=== PATIENT | male | born 1990 ===

== ENCOUNTER 2017-07-25 11:09 | Inpatient (IN) | payer OTHER ==
[2017-07-25 11:45] VITALS: BMI 30.9
[2017-07-25] MEDS: Nafcillin 2 GM in Sodium Chloride 0.9% 100 ML IVPB SCH ×3 (12:00→22:28)
--- NOTE | 2017-07-25 12:03 | ED PDOC ---
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 VASQUEZ COMPLICATED BY INFECTION HERE FOR ADMISSION. PATIENT HAS HAD CX 07/17 DEMONSTRATING STAPH. DENIES TAKING ANY ANTIBIOTICS. SENT IN BY DR. VASQUEZ FOR ADMISSION. PATIENT DENIES ANY FEVERS/ CHILLS.) Past Medical History Reviewed: Historical Data, Nursing Documentation, Vital Signs Vital Signs: Last Vital Signs Temp 98 F 07/25/17 11:45 Pulse 80 07/25/17 11:45 Resp 20 07/25/17 11:45 BP 126/84 07/25/17 11:45 Pulse Ox 97 07/25/17 12:04 - Medical History PMH: Fractures - Family History Family History: States: Unknown Family Hx - Immunization History Hx Tetanus Toxoid Vaccination: No Hx Influenza Vaccination: No Hx Pneumococcal Vaccination: No - Home Medications Home Medications: Ambulatory Orders Medication Instructions Recorded oxyCODONE/Acetaminophen [Percocet 1 tab PO DAILY PRN 07/25/17 5/325 mg Tab] - Allergies Allergies/Adverse Reactions: Allergies Allergy/AdvReac Type Severity Reaction Status Date / Time No Known Allergies Allergy Verified 07/25/17 12:02 Review of Systems ROS Statement: Except As Marked, All Systems Reviewed And Found Negative Musculoskeletal: Positive for: Other (ELBOW PAIN) Physical Exam - Reviewed Nursing Documentation Reviewed: Yes Vital Signs Reviewed: Yes - Physical Exam Appears: Positive for: Well, Non-toxic, No Acute Distress Head Exam: Positive for: ATRAUMATIC, NORMAL INSPECTION, NORMOCEPHALIC Skin: Positive for: Normal Color, Warm, DRY Eye Exam: Positive for: EOMI, Normal appearance, PERRL ENT: Positive for: Normal ENT Inspection Neck: Positive for: Normal, Painless ROM Cardiovascular/Chest: Positive for: Regular Rate, Rhythm Respiratory: Positive for: CNT, Normal Breath Sounds Gastrointestinal/Abdominal: Positive for: Normal Exam, Bowel Sounds, Soft Back: Positive for: Normal Inspection Extremity: Positive for: Normal ROM, Other (RIGHT ELBOW IN CAST. LEFT ELBOW WOUND WITHOUT ERYTHEMA OR SIGNS OF INFECTION.) Neurologic/Psych: Positive for: Alert, Oriented - Laboratory Results Result Diagrams: 07/25/17 12:17 07/25/17 12:17 - ECG O2 Sat by Pulse Oximetry: 97 - Progress ED Course And Treament: D/W DR. VASQUEZ REQUESTS ID CONSULT D/W DR. MARTINES. NAFCILLIN 2 GM IV Q 6 PREFERRED BY HIM. D/W SAADIA BOLAND. PATIENT TO BE ADMITTED TO [facility] Disposition - Clinical Impression Clinical Impression: Wound infection - Patient ED Disposition Is Patient to be Admitted: Yes - Disposition Disposition Time: 14:03 Condition: FAIR Forms: [employer] (Kiswahili) - Pt Status Changed To: Hospital Disposition Of: Inpatient - Admit Certification Admit to Inpatient:: After my assessment, the patient will require hospitalization for at least two midnights. This is because of the severity of symptoms shown, intensity of services needed, and/or the medical risk in this patient being treated as an outpatient.
[2017-07-25 12:17] LABS: VENOUS BLOOD GAS PCO2 44 mmHg (40-60); VENOUS BLOOD PH 7.44 (7.32-7.43)
[2017-07-25 12:35] LABS: BASO # 0.1 K/uL (0.0-0.2); BASO % 0.7 % (0.0-2.0); EOS # 0.6 K/uL (0.0-0.7); EOS % 7.1 % (0.0-4.0); HEMATOCRIT 38.9 % (35.0-51.0); LYMPH # 2.6 K/uL (1.0-4.3); LYMPH % 32.8 % (20.0-40.0); MEAN CELL VOLUME 84.4 fl (80.0-94.0); MEAN CORPUSCULAR HEMOGLOBIN 27.8 pg (27.0-31.0); MEAN CORPUSCULAR HGB CONC 32.9 g/dL (33.0-37.0); MEAN PLATELET VOLUME 8.6 fl (7.2-11.7); MONO # 0.5 K/uL (0.0-0.8); MONO % 6.5 % (0.0-10.0); NEUT # 4.2 K/uL (1.8-7.0); NEUT % 52.9 % (50.0-75.0); NRBC % 0.2 % (0.0-0.0); RED CELL DISTRIBUTION WIDTH 12.5 % (11.5-14.5); WHITE BLOOD COUNT 7.9 K/uL (4.8-10.8)
[2017-07-25 12:40] LABS: ALKALINE PHOSPHATASE 125 U/L (38-126); ALT/SGPT 76 U/L (21-72); AST/SGOT 30 U/L (17-59); BILIRUBIN,TOTAL 0.7 mg/dl (0.2-1.3); BLOOD UREA NITROGEN 15 mg/dl (9-20); CARBON DIOXIDE 27 mmol/L (22-30); CHLORIDE 101 mmol/L (98-107); GFR AFRICAN-AMERICAN > 60; GLUCOSE,RANDOM 122 mg/dL (75-110); POTASSIUM 3.7 MMOL/L (3.6-5.0); SODIUM 141 mmol/l (132-148); TOTAL PROTEIN 8.7 G/DL (6.3-8.2)
--- NOTE | 2017-07-25 13:23 | CP.PCM.CON ---
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 VASQUEZ COMPLICATED BY INFECTION HERE FOR ADMISSION. PATIENT HAS HAD CX 07/17 DEMONSTRATING STAPH. DENIES TAKING ANY ANTIBIOTICS. SENT IN BY DR. VASQUEZ FOR ADMISSION. 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 OPERATED AT [facility] AFTER FALL RECENT OR / CULTURE AT [place] 07/17 - CULTURES AT THAT TIME ++ MSSA NOW HERE FOR POSSIBLE DRAINAGE/ WASHOUT RIGHT ELBOW STARTED ON IV ANTIBIOTICS DENIES SYSTEMIC SYMPTOMS - FEVER NEG PMH- NEG SH- NO DRUGS FH- N/C NKA Review of Systems - Review of Systems All systems: reviewed and no additional remarkable complaints except - Constitutional Constitutional: As Per HPI - EENT Eyes: absent: As Per HPI, Blind Spots, Blurred Vision, Change in Vision, Decreased Night Vision, Diplopia, Discharge, Dry Eye, Exophthalmos, Floaters, Irritation, Itchy Eyes, Loss of Peripheral Vision, Pain, Photophobia, Requires Corrective Lenses, Sees Flashes, Spots in Vision, Tunnel Vision, Other Visual Disturbances, Loss of Vision, Other Ears: absent: As Per HPI, Decreased Hearing, Ear Discharge, Ear Pain, Tinnitus, Abnormal Hearing, Disequilibrium, Dizziness, Other Nose/Mouth/Throat: absent: As Per HPI, Epistaxis, Nasal Congestion, Nasal Discharge, Nasal Obstruction, Nasal Trauma, Nose Pain, Post Nasal Drip, Sinus Pain, Sinus Pressure, Bleeding Gums, Change in Voice, Dental Pain, Dry Mouth, Dysphagia, Halitosis, Hoarsness, Lip Swelling, Mouth Lesions, Mouth Pain, Odynophagia, Sore Throat, Throat Swelling, Tongue Swelling, Facial Pain, Neck Pain, Neck Mass, Other - Cardiovascular Cardiovascular: absent: As Per HPI, Acrocyanosis, Chest Pain, Chest Pain at Rest , Chest Pain with Activity, Claudication, Diaphoresis, Dyspnea, Dyspnea on Exertion, Edema, Irregular Heart Rhythm, Pain Radiating to Arm/Neck/Jaw, Leg Edema, Leg Ulcers, Lightheadedness, Orthopnea, Palpitations, Paroxysmal Nocturnal Dyspnea, Pedal Edema, Radiating Pain, Rapid Heart Rate, Slow Heart Rate, Syncope, Other - Respiratory Respiratory: absent: As Per HPI, Cough, Dyspnea, Hemoptysis, Dyspnea on Exertion , Wheezing, Snoring, Stridor, Pain on Inspiration, Chest Congestion, Excessive Mucous Production, Change in Mucous Color, Pain with Coughing, Other - Gastrointestinal Gastrointestinal: absent: As Per HPI, Abdominal Pain, Belching, Bloating, Change in Bowel Habits, Change in Stool Character, Coffee Ground Emesis, Constipation, Cramping, Diarrhea, Dyspepsia, Dysphagia, Early Satiety, Excessive Flatus, Fecal Incontinence, Heartburn, Hematemesis, Hematochezia, Loose Stools, Melena, Nausea, Odynophagia, Temesmus, Vomiting, Other - Genitourinary Genitourinary: absent: As Per HPI, Change in Urinary Stream, Difficulty Urinating, Dysuria, Flank Pain, Hematuria, Pyuria, Nocturia, Urinary Incontinence, Urinary Frequency, Urinary Hesitance, Urinary Urgency, Voiding Freq/Small Amts, Freq UTI, Hx Renal/Bladder Calculi, Hx /Renal Surgery, Bladder Distension, Other - Musculoskeletal Musculoskeletal: As Per HPI - Integumentary Integumentary: As Per HPI - Neurological Neurological: absent: As Per HPI, Abnormal Gait, Abnormal Hearing, Abnormal Movements, Abnormal Speech, Behavioral Changes, Burning Sensations, Confusion, Convulsions, Disequilibrium, Dizziness, Numbness, Focal Weakness, Frequent Falls , Headaches, Lack of Coordination, Loss of Vision, Memory Loss, Paresthesias, Radicular Pain, Restless Legs, Sensory Deficit, Syncope, Tingling, Tremor, Vertigo, Weakness, Other Visual Disturbances, Other - Psychiatric Psychiatric: absent: As Per HPI, Abnormal Sleep Pattern, Anhedonia, Anxiety, Auditory Hallucinations, Behavioral Changes, Change in Appetite, Change in Libido, Confusion, Depression, Difficulty Concentrating, Hallucinations, Homicidal Ideation, Hopelessness, Irritability, Memory Loss, Mood Swings, Panic Attacks, Paranoia, Suicidal Ideation, Visual Hallucinations, Tactile Hallucinations, Other - Endocrine Endocrine: absent: As Per HPI, Change in Body Appearance, Change in Libido, Cold Intolorance, Deepening of Voice, Excessive Sweating, Fatigue, Flushing, Heat Intolorance, Increase in Ring/Shoe/Hat Size, Palpitations, Polydipsia, Polyphagia, Polyuria, Other - Hematologic/Lymphatic Hematologic: absent: As Per HPI, Easy Bleeding, Easy Bruising, Lymphadenopathy, Other Past Patient History - Infectious Disease Hx of Infectious Diseases: None - Past Social History Smoking Status: Never Smoked - MUSCULOSKELETAL/RHEUMATOLOGICAL Hx Fractures: Yes (bilateral elbow) - PSYCHIATRIC Hx Substance Use: No - SURGICAL HISTORY Hx Surgeries: Yes Hx Orthopedic Surgery: Yes (06/17/17 bone repair both elbows) - ANESTHESIA Hx Anesthesia: Yes Hx Anesthesia Reactions: No Hx Malignant Hyperthermia: No Meds Allergies/Adverse Reactions: Allergies Allergy/AdvReac Type Severity Reaction Status Date / Time No Known Allergies Allergy Verified 07/25/17 12:02 - Medications Medications: Current Medications Nafcillin Sodium 2 gm/ Sodium (Chloride) 100 mls @ 100 mls/hr IVPB Q6 BRIAN PRN Reason: Protocol Physical Exam - Constitutional Appears: Non-toxic, Chronically Ill - Head Exam Head Exam: NORMOCEPHALIC - Eye Exam Eye Exam: PERRL. absent: Scleral icterus - ENT Exam ENT Exam: Mucous Membranes Dry, Normal External Ear Exam - Neck Exam Neck exam: Negative for: Lymphadenopathy - Respiratory Exam Respiratory Exam: Decreased Breath Sounds, Clear to Auscultation Bilateral - Cardiovascular Exam Cardiovascular Exam: REGULAR RHYTHM, +S1, +S2 - GI/Abdominal Exam GI & Abdominal Exam: Diminished Bowel Sounds, Soft. absent: Tenderness - Rectal Exam Rectal Exam: Deferred - Exam Exam: NORMAL INSPECTION - Extremities Exam Extremities exam: Positive for: joint swelling, normal capillary refill, pedal pulses present. Negative for: calf tenderness, full ROM, normal inspection, pedal edema, tenderness Additional comments: RIGHT ELBOW IN A CAST- ERYTHEMA + LEFT ELBOW SUTURE LINE IN TACT NO PUS - Back Exam Back exam: absent: CVA tenderness (L), CVA tenderness (R) - Neurological Exam Neurological exam: Alert, CN II-XII Intact, Oriented x3, Reflexes Normal - Psychiatric Exam Psychiatric exam: Normal Affect - Skin Skin Exam: Dry Additional comments: NOTED Results - Vital Signs Recent Vital Signs: Last Vital Signs Temp 98 F 07/25/17 11:45 Pulse 80 07/25/17 11:45 Resp 20 07/25/17 11:45 BP 126/84 07/25/17 11:45 Pulse Ox 97 07/25/17 12:04 - Labs Result Diagrams: 07/25/17 12:17 07/25/17 12:17 Labs: Laboratory Results - last 24 hr 12/13/17 12/13/17 12/13/17 12:10 12:17 12:17 WBC 7.9 RBC 4.61 Hgb 12.8 Hct 38.9 MCV 84.4 MCH 27.8 MCHC 32.9 L RDW 12.5 Plt Count 321 MPV 8.6 Neut % (Auto) 52.9 Lymph % (Auto) 32.8 [place] % (Auto) 6.5 Eos % (Auto) 7.1 H Baso % (Auto) 0.7 Neut # 4.2 Lymph # 2.6 [place] # 0.5 Eos # 0.6 Baso # 0.1 pO2 64 H VBG pH 7.44 H VBG pCO2 44 VBG HCO3 28.7 VBG Total CO2 31.3 H VBG O2 Sat (Calc) 96.0 H VBG Base Excess 5.0 H VBG Potassium 3.7 A-a O2 Difference 31.0 Sodium 136.0 141 Chloride 103.0 101 Glucose 135 H Lactate 1.0 FiO2 21.0 Potassium 3.7 Carbon Dioxide 27 Anion Gap 17 BUN 15 Creatinine 0.6 L Est GFR ( Amer) > 60 Est GFR (Non-Af Amer) > 60 Random Glucose 122 H Calcium 9.0 Total Bilirubin 0.7 AST 30 ALT 76 H Alkaline Phosphatase 125 Total Protein 8.7 H Albumin 4.3 Globulin 4.4 H Albumin/Globulin Ratio 1.0 Venous Blood Potassium 3.7 Assessment & Plan (1) Cellulitis Status: Acute (2) Septic joint Status: Acute - Assessment and Plan (Free Text) Assessment: FOR POSSIBLE OR/ WASHOUT RIGHT ELBOW ORIGINALLY OPERATED AT [facility] IV NAFCILLIN WILL NEED OR CULTURES MAY NEED STEEL ROLLER IV ANTIBIOTICS
[2017-07-25] MEDS ORDERED: Oxycodone/Acetaminophen 5/325 mg Tab PO PRN (14:21)
[2017-07-25] MEDS ORDERED: Morphine 4 MG/ML VIAL IVP ONE (14:32)
[2017-07-25] MEDS ORDERED: Morphine 4 MG/ML VIAL ONE (14:33)
[2017-07-25] MEDS ORDERED: Lidocaine 1% Inj (20ml) ONE (14:42)
--- NOTE | 2017-07-25 15:15 | PCM.SURG1 ---
Surgeon's Initial Post Op Note - Surgeon's Notes Surgeon: Davian Helm MD Health Social Work Professor: NONE Type of Anesthesia: Local Pre-Operative Diagnosis: Broken arms, infection Operative Findings: US showed patent left basilic vein. Post-Operative Diagnosis: Broken arms, infection Operation Performed: Single lumen picc, 37 cm VIA the left basilic vein. Tip is in the SVC. Specimen/Specimens Removed: none Estimated Blood Loss: EBL {In ML}: 2 Blood Products Given: N/A Drains Used: No Drains Post-Op Condition: Fair Date of Surgery/Procedure: 07/25/17 Time of Surgery/Procedure: 15:10
[2017-07-25] MEDS ORDERED: Pneumococcal 23-Valent Vaccine IM ONE (16:58)
[2017-07-25] MEDS ORDERED: Influenza Vaccine 18yr & older 0.5 ML/45 MCG SYR IM ONE (17:03)
[2017-07-25] MEDS: Oxycodone/Acetaminophen 5/325 mg Tab PO PRN ×2 (17:51→22:34)
[2017-07-26] MEDS: Oxycodone/Acetaminophen 5/325 mg Tab PO PRN ×4 (03:51→20:14)
[2017-07-26] MEDS: Nafcillin 2 GM in Sodium Chloride 0.9% 100 ML IVPB SCH ×4 (03:52→21:14)
[2017-07-26 06:24] LABS: BASO # 0.1 K/uL (0.0-0.2); BASO % 0.6 % (0.0-2.0); EOS # 0.6 K/uL (0.0-0.7); EOS % 6.5 % (0.0-4.0); HEMATOCRIT 36.3 % (35.0-51.0); LYMPH % 31.1 % (20.0-40.0); MEAN CELL VOLUME 85.2 fl (80.0-94.0); MEAN CORPUSCULAR HEMOGLOBIN 28.3 pg (27.0-31.0); MEAN CORPUSCULAR HGB CONC 33.3 g/dL (33.0-37.0); MEAN PLATELET VOLUME 8.3 fl (7.2-11.7); MONO # 0.8 K/uL (0.0-0.8); NEUT # 5.2 K/uL (1.8-7.0); NEUT % 53.8 % (50.0-75.0); RED CELL DISTRIBUTION WIDTH 12.8 % (11.5-14.5); WHITE BLOOD COUNT 9.7 K/uL (4.8-10.8)
[2017-07-26 06:43] LABS: ALKALINE PHOSPHATASE 116 U/L (38-126); ALT/SGPT 65 U/L (21-72); AST/SGOT 35 U/L (17-59); BILIRUBIN,TOTAL 0.9 mg/dl (0.2-1.3); BLOOD UREA NITROGEN 13 mg/dl (9-20); CARBON DIOXIDE 33 mmol/L (22-30); CHLORIDE 102 mmol/L (98-107); GFR AFRICAN-AMERICAN > 60; GLUCOSE,RANDOM 89 mg/dL (75-110); POTASSIUM 4.3 MMOL/L (3.6-5.0); SODIUM 141 mmol/l (132-148); TOTAL PROTEIN 7.9 G/DL (6.3-8.2)
--- NOTE | 2017-07-26 06:58 | CP.PCM.HP ---
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 surgery and revisions at [facility] bw noted. picc placed, ID consult appriciated. ortho pending. left elbow yonatan intact c/d. no f/c. bw noted. r elbow w/ splint. pt also c/o mild rash to abd, pruritic and erythematous pt c/o nausea controlled w/ zofran Present on Admission - Present on Admission Any Indicators Present on Admission: No Review of Systems - Integumentary Integumentary: As Per HPI Past Patient History - Infectious Disease Hx of Infectious Diseases: None - Past Medical History & Family History Past Medical History?: Yes - Past Social History Smoking Status: Former Smoker - MUSCULOSKELETAL/RHEUMATOLOGICAL Hx Falls: No - PSYCHIATRIC Hx Substance Use: No - SURGICAL HISTORY Hx Surgeries: Yes Hx Orthopedic Surgery: Yes (06/17/17 bone repair both elbows) - ANESTHESIA Hx Anesthesia: Yes Hx Anesthesia Reactions: No Hx Malignant Hyperthermia: No Meds Allergies/Adverse Reactions: Allergies Allergy/AdvReac Type Severity Reaction Status Date / Time No Known Allergies Allergy Verified 07/25/17 12:02 Physical Exam - Constitutional Appears: Well, Non-toxic, No Acute Distress - Head Exam Head Exam: ATRAUMATIC, NORMAL INSPECTION, NORMOCEPHALIC - Eye Exam Eye Exam: EOMI, Normal appearance, PERRL Pupil Exam: NORMAL ACCOMODATION, PERRL - ENT Exam ENT Exam: Mucous Membranes Moist, Normal Exam - Neck Exam Neck exam: Positive for: Normal Inspection - Respiratory Exam Respiratory Exam: Clear to Auscultation Bilateral, NORMAL BREATHING PATTERN - Cardiovascular Exam Cardiovascular Exam: REGULAR RHYTHM, RRR, +S1, +S2 - GI/Abdominal Exam GI & Abdominal Exam: Normal Bowel Sounds, Soft. absent: Tenderness - Extremities Exam Extremities exam: Positive for: full ROM, normal capillary refill, normal inspection, pedal pulses present Additional comments: left elbow staple line c/d/i r splint intact - Back Exam Back exam: NORMAL INSPECTION - Neurological Exam Neurological exam: Alert, CN II-XII Intact, Normal Gait, Oriented x3, Reflexes Normal - Psychiatric Exam Psychiatric exam: Normal Affect, Normal Mood - Skin Skin Exam: Dry, Intact, Normal Color, Warm Results - Vital Signs Recent Vital Signs: Last Vital Signs Temp 98.3 F 07/26/17 00:39 Pulse 76 07/26/17 00:39 Resp 18 07/26/17 00:39 BP 122/80 07/26/17 00:39 Pulse Ox 98 07/26/17 00:39 - Labs Result Diagrams: 07/26/17 05:45 07/26/17 05:45 Labs: Laboratory Results - last 24 hr 07/25/17 07/25/17 07/25/17 12:10 12:17 12:17 WBC 7.9 RBC 4.61 Hgb 12.8 Hct 38.9 MCV 84.4 MCH 27.8 MCHC 32.9 L RDW 12.5 Plt Count 321 MPV 8.6 Neut % (Auto) 52.9 Lymph % (Auto) 32.8 [place] % (Auto) 6.5 Eos % (Auto) 7.1 H Baso % (Auto) 0.7 Neut # 4.2 Lymph # 2.6 [place] # 0.5 Eos # 0.6 Baso # 0.1 pO2 64 H VBG pH 7.44 H VBG pCO2 44 VBG HCO3 28.7 VBG Total CO2 31.3 H VBG O2 Sat (Calc) 96.0 H VBG Base Excess 5.0 H VBG Potassium 3.7 A-a O2 Difference 31.0 Sodium 136.0 141 Chloride 103.0 101 Glucose 135 H Lactate 1.0 FiO2 21.0 Potassium 3.7 Carbon Dioxide 27 Anion Gap 17 BUN 15 Creatinine 0.6 L Est GFR ( Amer) > 60 Est GFR (Non-Af Amer) > 60 Random Glucose 122 H Calcium 9.0 Total Bilirubin 0.7 AST 30 ALT 76 H Alkaline Phosphatase 125 Total Protein 8.7 H Albumin 4.3 Globulin 4.4 H Albumin/Globulin Ratio 1.0 Venous Blood Potassium 3.7 07/26/17 07/26/17 05:45 05:45 WBC 9.7 RBC 4.26 L Hgb 12.1 Hct 36.3 MCV 85.2 MCH 28.3 MCHC 33.3 RDW 12.8 Plt Count 297 MPV 8.3 Neut % (Auto) 53.8 Lymph % (Auto) 31.1 [place] % (Auto) 8.0 Eos % (Auto) 6.5 H Baso % (Auto) 0.6 Neut # 5.2 Lymph # 3.0 [place] # 0.8 Eos # 0.6 Baso # 0.1 pO2 VBG pH VBG pCO2 VBG HCO3 VBG Total CO2 VBG O2 Sat (Calc) VBG Base Excess VBG Potassium A-a O2 Difference Sodium 141 Chloride 102 Glucose Lactate FiO2 Potassium 4.3 Carbon Dioxide 33 H Anion Gap 10 BUN 13 Creatinine 0.8 Est GFR ( Amer) > 60 Est GFR (Non-Af Amer) > 60 Random Glucose 89 Calcium 9.0 Total Bilirubin 0.9 AST 35 ALT 65 Alkaline Phosphatase 116 Total Protein 7.9 Albumin 3.9 Globulin 4.0 H Albumin/Globulin Ratio 1.0 Venous Blood Potassium Assessment & Plan (1) Osteomyelitis of right elbow Assessment and Plan: nafcillin in hospital, likely dc on cubicin ID ortho Status: Acute (2) DVT prophylaxis Assessment and Plan: scd and ae hose ambulation Status: Acute (3) Nausea Assessment and Plan: zofran Status: Acute (4) Rash Assessment and Plan: hydrocortisone benadryl prn likely contact derm Status: Acute (5) Wound infection Assessment and Plan: ortho anbx, ID Status: Acute Decision To Admit - Pt Status Changed To: Hospital Disposition Of: Inpatient - Admit Certification Admit to Inpatient:: After my assessment, the patient will require hospitalization for at least two midnights. This is because of the severity of symptoms shown, intensity of services needed, and/or the medical risk in this patient being treated as an outpatient. - . Bed Request Type: Med/Surg Admitting Physician: Vera Ashley
[2017-07-27] MEDS: Oxycodone/Acetaminophen 5/325 mg Tab PO PRN ×3 (01:28→14:20)
[2017-07-27] MEDS: Nafcillin 2 GM in Sodium Chloride 0.9% 100 ML IVPB SCH ×4 (04:20→21:39)
[2017-07-27 06:13] LABS: BASO # 0.1 K/uL (0.0-0.2); BASO % 0.8 % (0.0-2.0); EOS # 0.5 K/uL (0.0-0.7); EOS % 6.9 % (0.0-4.0); HEMATOCRIT 36.5 % (35.0-51.0); LYMPH % 38.7 % (20.0-40.0); MEAN CELL VOLUME 84.8 fl (80.0-94.0); MEAN CORPUSCULAR HEMOGLOBIN 27.9 pg (27.0-31.0); MEAN CORPUSCULAR HGB CONC 32.9 g/dL (33.0-37.0); MEAN PLATELET VOLUME 8.1 fl (7.2-11.7); MONO # 0.7 K/uL (0.0-0.8); MONO % 8.5 % (0.0-10.0); NEUT # 3.5 K/uL (1.8-7.0); NEUT % 45.1 % (50.0-75.0); NRBC % 0.1 % (0.0-0.0); RED CELL DISTRIBUTION WIDTH 12.5 % (11.5-14.5); WHITE BLOOD COUNT 7.7 K/uL (4.8-10.8)
[2017-07-27 06:46] LABS: ALKALINE PHOSPHATASE 121 U/L (38-126); ALT/SGPT 79 U/L (21-72); AST/SGOT 52 U/L (17-59); BLOOD UREA NITROGEN 10 mg/dl (9-20); CARBON DIOXIDE 30 mmol/L (22-30); CHLORIDE 101 mmol/L (98-107); GFR AFRICAN-AMERICAN > 60; GLUCOSE,RANDOM 90 mg/dL (75-110); POTASSIUM 4.2 MMOL/L (3.6-5.0); SODIUM 143 mmol/l (132-148); TOTAL PROTEIN 8.1 G/DL (6.3-8.2)
--- NOTE | 2017-07-27 12:28 | CP.PCM.PN ---
Subjective - Date & Time of Evaluation Date of Evaluation: 07/27/17 Time of Evaluation: 08:00 - Subjective Subjective: iv rx in progess tolerating well will need 6 weeks rx + OM right elbow MSSA + as per Ortho- hardware placed at [place] removed at [facility] - Vital Signs/Intake and Output Vital Signs (last 24 hours): Temp Pulse Resp BP Pulse Ox 97.9 F 69 18 127/82 97 07/27/17 07:27 07/27/17 07:27 07/27/17 07:27 07/27/17 07:27 07/27/17 07:27 - Medications Medications: Current Medications Diphenhydramine HCl (Benadryl) 25 mg PO Q6 PRN PRN Reason: Allergy symptoms Hydrocortisone (Hydrocortisone Lotion 2.5%) 1 applic TP BID BRIAN Last Admin: 07/27/17 09:36 Dose: 1 applic Nafcillin Sodium 2 gm/ Sodium (Chloride) 100 mls @ 100 mls/hr IVPB Q6 BRIAN PRN Reason: Protocol Last Admin: 07/27/17 09:09 Dose: 100 mls/hr Ondansetron HCl (Zofran Inj) 4 mg IVP Q6 PRN PRN Reason: Nausea/Vomiting Last Admin: 07/26/17 18:21 Dose: 4 mg Oxycodone/Acetaminophen (Percocet 5/325 Mg Tab) 1 tab PO Q4 PRN PRN Reason: Pain, moderate (4-7) Stop: 07/28/17 14:22 Oxycodone/Acetaminophen (Percocet 5/325 Mg Tab) 2 tab PO Q4 PRN PRN Reason: Pain, severe (8-10) Stop: 07/28/17 14:22 Last Admin: 07/27/17 08:30 Dose: 2 tab - Labs Labs: 07/27/17 06:00 07/27/17 06:00 - Constitutional Appears: Non-toxic, Chronically Ill - Head Exam Head Exam: NORMOCEPHALIC - Eye Exam Eye Exam: PERRL - ENT Exam ENT Exam: Mucous Membranes Dry - Neck Exam Neck Exam: absent: Lymphadenopathy - Respiratory Exam Respiratory Exam: Decreased Breath Sounds - Cardiovascular Exam Cardiovascular Exam: REGULAR RHYTHM - GI/Abdominal Exam GI & Abdominal Exam: Distended - Rectal Exam Rectal Exam: Deferred - Extremities Exam Extremities Exam: absent: Calf Tenderness Additional comments: decreased rom right and left upper extrem Assessment and Plan (1) Cellulitis Status: Acute (2) Septic joint Status: Acute (3) Osteomyelitis Status: Acute (4) Osteomyelitis Status: Acute
--- NOTE | 2017-07-27 13:21 | VASCULAR ---
PROCEDURE: Date of procedure: 07/25/2017 Procedure: 1. Placement of a left arm PICC with ultrasound and fluoroscopic guidance, CPT 14062 2. PICC tip confirmation with spot radiograph and is in the superior vena cava Medications: 1 percent lidocaine Total Fluoro time: 16.5 seconds Radiation: 2.35 MGy EBL: 3 cc HISTORY: Infection requiring long-term IV antibiotics TECHNIQUE: Following informed consent and procedure time-out, the patient placed supine on the interventional table and the left arm prepped and draped in the usual sterile fashion. Ultrasound showed a patent and compressible left basilic vein. After the skin was anesthetized with lidocaine, the basilic vein was accessed with micro micropuncture technique using ultrasound guidance. A guidewire was then advanced under fluoroscopic guidance into the superior vena cava. An image documenting ultrasound guidance for vascular access was permanently saved. The length of a single-lumen 4 [place] PICC was trimmed to 37 cm and advanced through a peel-away sheath. The PICC was position with tip of PICC confirm a spot radiograph the superior vena cava. The PICC was secured to the patient's skin. The PICC was flushed. A biopatch and sterile dressing was applied. IMPRESSION: Placement of a single-lumen 4 [place]ian PICC left basilic vein trimmed to 37 cm. The tip of the PICC is confirmed with spot radiograph and is in the superior vena cava.
--- NOTE | 2017-07-27 19:22 | CP.PCM.PN ---
Subjective - Date & Time of Evaluation Date of Evaluation: 07/27/17 Time of Evaluation: 19:20 - Subjective Subjective: pt doing well, wound to r arm noted. small amt of dried drainage. no f/c, n/v/ d. no further rash. bw noted. ortho cleared pt for dc but problems w/ insurance re home anbx Objective - Vital Signs/Intake and Output Vital Signs (last 24 hours): Temp Pulse Resp BP Pulse Ox 97.9 F 69 18 127/82 97 07/27/17 07:27 07/27/17 07:27 07/27/17 07:27 07/27/17 07:27 07/27/17 07:27 - Medications Medications: Current Medications Diphenhydramine HCl (Benadryl) 25 mg PO Q6 PRN PRN Reason: Allergy symptoms Docusate Sodium (Colace) 100 mg PO BID [facility] Last Admin: 07/27/17 16:14 Dose: 100 mg Hydrocortisone (Hydrocortisone Lotion 2.5%) 1 applic TP BID [facility] Last Admin: 07/27/17 16:15 Dose: 1 applic Nafcillin Sodium 2 gm/ Sodium (Chloride) 100 mls @ 100 mls/hr IVPB Q6 BRIAN PRN Reason: Protocol Last Admin: 07/27/17 16:14 Dose: 100 mls/hr Ondansetron HCl (Zofran Inj) 4 mg IVP Q6 PRN PRN Reason: Nausea/Vomiting Last Admin: 07/26/17 18:21 Dose: 4 mg Oxycodone/Acetaminophen (Percocet 5/325 Mg Tab) 1 tab PO Q4 PRN PRN Reason: Pain, moderate (4-7) Stop: 07/28/17 14:22 Oxycodone/Acetaminophen (Percocet 5/325 Mg Tab) 2 tab PO Q4 PRN PRN Reason: Pain, severe (8-10) Stop: 07/28/17 14:22 Last Admin: 07/27/17 14:20 Dose: 2 tab - Labs Labs: 07/27/17 06:00 07/27/17 06:00 - Constitutional Appears: Well, Non-toxic, No Acute Distress - Head Exam Head Exam: ATRAUMATIC, NORMAL INSPECTION, NORMOCEPHALIC - Eye Exam Eye Exam: EOMI, Normal appearance, PERRL Pupil Exam: NORMAL ACCOMODATION, PERRL - ENT Exam ENT Exam: Mucous Membranes Moist, Normal Exam - Neck Exam Neck Exam: Full ROM, Normal Inspection. absent: Lymphadenopathy - Respiratory Exam Respiratory Exam: Clear to Ausculation Bilateral, NORMAL BREATHING PATTERN - Cardiovascular Exam Cardiovascular Exam: REGULAR RHYTHM, RRR, +S1, +S2. absent: Murmur - GI/Abdominal Exam GI & Abdominal Exam: Soft, Normal Bowel Sounds. absent: Tenderness - Extremities Exam Extremities Exam: Full ROM, Normal Capillary Refill, Normal Inspection. absent : Joint Swelling, Pedal Edema - Back Exam Back Exam: NORMAL INSPECTION - Neurological Exam Neurological Exam: Alert, Awake, CN II-XII Intact, Normal Gait, Oriented x3 - Psychiatric Exam Psychiatric exam: Normal Affect, Normal Mood - Skin Skin Exam: Dry, Intact, Normal Color, Warm Assessment and Plan (1) Osteomyelitis of right elbow Status: Acute (2) DVT prophylaxis Status: Acute (3) Nausea Status: Acute (4) Rash Status: Acute (5) Wound infection Status: Acute - Assessment and Plan (Free Text) Assessment: (1) Osteomyelitis of right elbow Assessment and Plan: nafcillin in hospital, likely dc on cubicin ID ortho pain control Status: Acute (2) DVT prophylaxis Assessment and Plan: scd and ae hose ambulation Status: Acute (3) Nausea Assessment and Plan: zofran Status: Acute (4) Rash Assessment and Plan: hydrocortisone benadryl prn likely contact derm Status: Acute (5) Wound infection Assessment and Plan: ortho anbx, ID Status: Acute
--- NOTE | 2017-07-27 23:19 | CON ---
DATE: 07/27/2017 REASON FOR CONSULTATION: Right elbow infection. HISTORY OF PRESENT ILLNESS: A 27-year-old male who had a history of right elbow Monteggia fracture, underwent ORIF and developed infection. The patient recently underwent washout of the elbow. His OR cultures were positive for Staph infection. The patient presents to emergency room in the [facility] for further evaluation. He was admitted and started on IV antibiotics. Denies drainage, numbness, or paresthesia. Right elbow incision is well healing. There is mild erythema, no active drainage. No swelling. Range of motion is 70 degrees to 120 degrees. No instability. No palpable masses. Neurovascularly intact. IMAGING STUDIES: X-rays of the right elbow was seen and reviewed shows status post proximal ulnar ORIF and radial head excision. ASSESSMENT: Right elbow open reduction and internal fixation with washout, now with Staph aureus infection. PLAN: I discussed the above findings with the primary team. Patient will be started on IV antibiotics. We will get a PICC line. He can follow up with me after discharge for further recommendations. No surgical intervention at this time. Radhames Gómez MD
[2017-07-28] MEDS: Nafcillin 2 GM in Sodium Chloride 0.9% 100 ML IVPB SCH ×4 (04:23→21:32)
--- NOTE | 2017-07-28 14:52 | CP.PCM.PN ---
Subjective - Date & Time of Evaluation Date of Evaluation: 07/28/17 Time of Evaluation: 14:51 - Subjective Subjective: pt doign well, no complaints. no f/c, n/v/d. no rash. pain controlled w/ meds. Objective - Vital Signs/Intake and Output Vital Signs (last 24 hours): Temp Pulse Resp BP Pulse Ox 97.1 F L 106 H 20 99/49 L 100 07/28/17 07:58 07/28/17 07:58 07/28/17 07:58 07/28/17 07:58 07/28/17 07:58 - Medications Medications: Current Medications Diphenhydramine HCl (Benadryl) 25 mg PO Q6 PRN PRN Reason: Allergy symptoms Docusate Sodium (Colace) 100 mg PO BID [facility] Last Admin: 07/28/17 09:02 Dose: 100 mg Hydrocortisone (Hydrocortisone Lotion 2.5%) 1 applic TP BID [facility] Last Admin: 07/28/17 09:04 Dose: 1 applic Nafcillin Sodium 2 gm/ Sodium (Chloride) 100 mls @ 100 mls/hr IVPB Q6 BRIAN PRN Reason: Protocol Last Admin: 07/28/17 09:56 Dose: 100 mls/hr Ondansetron HCl (Zofran Inj) 4 mg IVP Q6 PRN PRN Reason: Nausea/Vomiting Last Admin: 07/27/17 20:00 Dose: 4 mg - Labs Labs: 07/27/17 06:00 07/27/17 06:00 - Constitutional Appears: Well, Non-toxic, No Acute Distress - Head Exam Head Exam: ATRAUMATIC, NORMAL INSPECTION, NORMOCEPHALIC - Eye Exam Eye Exam: EOMI, Normal appearance, PERRL Pupil Exam: NORMAL ACCOMODATION, PERRL - ENT Exam ENT Exam: Mucous Membranes Moist, Normal Exam - Neck Exam Neck Exam: Full ROM, Normal Inspection. absent: Lymphadenopathy - Respiratory Exam Respiratory Exam: Clear to Ausculation Bilateral, NORMAL BREATHING PATTERN - Cardiovascular Exam Cardiovascular Exam: REGULAR RHYTHM, RRR, +S1, +S2. absent: Murmur - GI/Abdominal Exam GI & Abdominal Exam: Soft, Normal Bowel Sounds. absent: Tenderness - Extremities Exam Extremities Exam: Full ROM, Normal Capillary Refill, Normal Inspection. absent : Joint Swelling, Pedal Edema - Back Exam Back Exam: NORMAL INSPECTION - Neurological Exam Neurological Exam: Alert, Awake, CN II-XII Intact, Normal Gait, Oriented x3 - Psychiatric Exam Psychiatric exam: Normal Affect, Normal Mood - Skin Skin Exam: Dry, Intact, Normal Color, Warm Assessment and Plan (1) Osteomyelitis of right elbow Status: Acute (2) DVT prophylaxis Status: Acute (3) Nausea Status: Acute (4) Rash Status: Acute (5) Wound infection Status: Acute - Assessment and Plan (Free Text) Assessment: (1) Osteomyelitis of right elbow Assessment and Plan: nafcillin in hospital, likely dc on cubicin ID ortho pain control Status: Acute (2) DVT prophylaxis Assessment and Plan: scd and ae hose ambulation Status: Acute (3) Nausea Assessment and Plan: zofran Status: Acute (4) Rash Assessment and Plan: hydrocortisone benadryl prn likely contact derm Status: Acute (5) Wound infection Assessment and Plan: ortho anbx, ID Status: Acute
[2017-07-28] MEDS ORDERED: Oxycodone/Acetaminophen 5/325 mg Tab PO ONE (16:54)
[2017-07-29] MEDS: Nafcillin 2 GM in Sodium Chloride 0.9% 100 ML IVPB SCH ×2 (03:41→11:57)
--- NOTE | 2017-07-29 10:05 | CP.PCM.PN ---
Subjective - Date & Time of Evaluation Date of Evaluation: 07/29/17 Time of Evaluation: 10:04 - Subjective Subjective: pt doing wlel, no complaints. pain controlled. nof /c, n/v/d. dsg c/d/i for dc tomorrow on anxef as cubicin not covered by pts insurance per dr lua, anbx changed to ancef 2gm q8 x 6 wks Objective - Vital Signs/Intake and Output Vital Signs (last 24 hours): Temp Pulse Resp BP Pulse Ox 98.3 F 109 H 20 97/60 L 99 07/29/17 08:19 07/29/17 08:19 07/29/17 08:19 07/29/17 08:19 07/29/17 08:19 - Medications Medications: Current Medications Diphenhydramine HCl (Benadryl) 25 mg PO Q6 PRN PRN Reason: Allergy symptoms Docusate Sodium (Colace) 100 mg PO BID [facility] Last Admin: 07/29/17 09:36 Dose: 100 mg Hydrocortisone (Hydrocortisone Lotion 2.5%) 1 applic TP BID [facility] Last Admin: 07/29/17 09:37 Dose: 1 applic Nafcillin Sodium 2 gm/ Sodium (Chloride) 100 mls @ 100 mls/hr IVPB Q6 BRIAN PRN Reason: Protocol Last Admin: 07/29/17 03:41 Dose: 100 mls/hr Ondansetron HCl (Zofran Inj) 4 mg IVP Q6 PRN PRN Reason: Nausea/Vomiting Last Admin: 07/27/17 20:00 Dose: 4 mg - Labs Labs: 07/27/17 06:00 07/27/17 06:00 - Constitutional Appears: Well, Non-toxic, No Acute Distress - Head Exam Head Exam: ATRAUMATIC, NORMAL INSPECTION, NORMOCEPHALIC - Eye Exam Eye Exam: EOMI, Normal appearance, PERRL Pupil Exam: NORMAL ACCOMODATION, PERRL - ENT Exam ENT Exam: Mucous Membranes Moist, Normal Exam - Neck Exam Neck Exam: Full ROM, Normal Inspection. absent: Lymphadenopathy - Respiratory Exam Respiratory Exam: Clear to Ausculation Bilateral, NORMAL BREATHING PATTERN - Cardiovascular Exam Cardiovascular Exam: REGULAR RHYTHM, RRR, +S1, +S2. absent: Murmur - GI/Abdominal Exam GI & Abdominal Exam: Soft, Normal Bowel Sounds. absent: Tenderness - Extremities Exam Extremities Exam: Full ROM, Normal Capillary Refill, Normal Inspection. absent : Joint Swelling, Pedal Edema Additional comments: dsg/splint c/d/i - Back Exam Back Exam: NORMAL INSPECTION - Neurological Exam Neurological Exam: Alert, Awake, CN II-XII Intact, Normal Gait, Oriented x3 - Psychiatric Exam Psychiatric exam: Normal Affect, Normal Mood - Skin Skin Exam: Dry, Intact, Normal Color, Warm Assessment and Plan (1) Osteomyelitis of right elbow Status: Acute (2) DVT prophylaxis Status: Acute (3) Nausea Status: Acute (4) Rash Status: Acute (5) Wound infection Status: Acute - Assessment and Plan (Free Text) Assessment: (1) Osteomyelitis of right elbow Assessment and Plan: nafcillin in hospital, likely dc on ancef ID ortho pain control Status: Acute (2) DVT prophylaxis Assessment and Plan: scd and ae hose ambulation Status: Acute (3) Nausea Assessment and Plan: zofran Status: Acute (4) Rash Assessment and Plan: hydrocortisone benadryl prn likely contact derm Status: Acute (5) Wound infection Assessment and Plan: ortho anbx, ID Status: Acute
[2017-07-29] MEDS ORDERED: Oxycodone/Acetaminophen 5/325 mg Tab PO PRN (10:56)
--- NOTE | 2017-07-29 13:09 | CP.PCM.PN ---
Subjective - Date & Time of Evaluation Date of Evaluation: 07/29/17 Time of Evaluation: 09:00 - Subjective Subjective: discussed on rounds iv rx in progress add ancef 2g iv q8h Objective - Vital Signs/Intake and Output Vital Signs (last 24 hours): Temp Pulse Resp BP Pulse Ox 98.3 F 109 H 20 97/60 L 99 07/29/17 09:00 07/29/17 09:00 07/29/17 09:00 07/29/17 09:00 07/29/17 09:00 - Medications Medications: Current Medications Diphenhydramine HCl (Benadryl) 25 mg PO Q6 PRN PRN Reason: Allergy symptoms Docusate Sodium (Colace) 100 mg PO BID [facility] Last Admin: 07/29/17 09:36 Dose: 100 mg Hydrocortisone (Hydrocortisone Lotion 2.5%) 1 applic TP BID [facility] Last Admin: 07/29/17 09:37 Dose: 1 applic Ondansetron HCl (Zofran Inj) 4 mg IVP Q6 PRN PRN Reason: Nausea/Vomiting Last Admin: 07/27/17 20:00 Dose: 4 mg Oxycodone/Acetaminophen (Percocet 5/325 Mg Tab) 1 tab PO Q4 PRN PRN Reason: Pain, severe (8-10) Stop: 08/01/17 10:57 - Labs Labs: 07/27/17 06:00 07/27/17 06:00 - Constitutional Appears: Non-toxic, Chronically Ill - Head Exam Head Exam: NORMOCEPHALIC - Eye Exam Eye Exam: PERRL. absent: Scleral icterus - ENT Exam ENT Exam: Mucous Membranes Dry - Neck Exam Neck Exam: absent: Lymphadenopathy - Respiratory Exam Respiratory Exam: Decreased Breath Sounds - Cardiovascular Exam Cardiovascular Exam: REGULAR RHYTHM - GI/Abdominal Exam GI & Abdominal Exam: Distended - Rectal Exam Rectal Exam: Deferred Assessment and Plan (1) Cellulitis Status: Acute (2) Septic joint Status: Acute (3) Osteomyelitis Status: Acute (4) Osteomyelitis Status: Acute - Assessment and Plan (Free Text) Plan: 6 weeks rx for OM ortho follow up
[2017-07-29] MEDS: ceFAZolin IV 2 gm in Dextrose 2 GM/50 ML BAG IVPB SCH (16:30)
[2017-07-30] MEDS: ceFAZolin IV 2 gm in Dextrose 2 GM/50 ML BAG IVPB SCH ×2 (00:40→12:44)
[2017-07-30 07:36] VITALS: TEMP 98
--- NOTE | 2017-07-30 11:22 | CP.PCM.PN ---
Subjective - Date & Time of Evaluation Date of Evaluation: 07/30/17 Time of Evaluation: 08:00 - Subjective Subjective: afeb dressing dry ESR hi cont rx\ ortho follow up Objective - Vital Signs/Intake and Output Vital Signs (last 24 hours): Temp Pulse Resp BP Pulse Ox 98 F 76 20 112/67 97 07/30/17 07:35 07/30/17 07:35 07/30/17 07:35 07/30/17 07:35 07/30/17 07:35 - Medications Medications: Current Medications Diphenhydramine HCl (Benadryl) 25 mg PO Q6 PRN PRN Reason: Allergy symptoms Docusate Sodium (Colace) 100 mg PO BID [facility] Last Admin: 07/30/17 10:10 Dose: 100 mg Hydrocortisone (Hydrocortisone Lotion 2.5%) 1 applic TP BID [facility] Last Admin: 07/29/17 16:30 Dose: 1 applic Cefazolin Sodium/Dextrose (Ancef Iv 2 Gm Duplex) 2 gm in 50 mls @ 50 mls/hr IVPB Q8 BRIAN PRN Reason: Protocol Last Admin: 07/30/17 00:40 Dose: 50 mls/hr Ondansetron HCl (Zofran Inj) 4 mg IVP Q6 PRN PRN Reason: Nausea/Vomiting Last Admin: 07/27/17 20:00 Dose: 4 mg Oxycodone/Acetaminophen (Percocet 5/325 Mg Tab) 1 tab PO Q4 PRN PRN Reason: Pain, severe (8-10) Stop: 08/01/17 10:57 - Labs Labs: 07/27/17 06:00 07/27/17 06:00 - Constitutional Appears: Non-toxic, Chronically Ill - Head Exam Head Exam: NORMOCEPHALIC - Eye Exam Eye Exam: PERRL. absent: Scleral icterus - ENT Exam ENT Exam: Mucous Membranes Dry - Neck Exam Neck Exam: absent: Lymphadenopathy - Respiratory Exam Respiratory Exam: Decreased Breath Sounds - Cardiovascular Exam Cardiovascular Exam: REGULAR RHYTHM - GI/Abdominal Exam GI & Abdominal Exam: Distended Assessment and Plan (1) Cellulitis Status: Acute (2) Septic joint Status: Acute (3) Osteomyelitis Status: Acute (4) Osteomyelitis Status: Acute
[2017-07-30] MEDS ORDERED: DAPTOmycin 500 MG in Sodium Chloride 0.9% 100 ML IVPB ONE (13:19)
--- NOTE | 2017-07-30 16:27 | CP.PCM.DIS ---
Provider - Provider Date of Admission: 07/25/17 15:15 Attending physician: Vera Ashley MD Time Spent in preparation of Discharge (in minutes): 15 Diagnosis - Discharge Diagnosis (1) Osteomyelitis of right elbow Status: Acute (2) DVT prophylaxis Status: Acute (3) Nausea Status: Acute (4) Rash Status: Acute (5) Wound infection Status: Acute Hospital Course - Lab Results Lab Results: Micro Results 07/25/17 13:50 Blood-Venous Blood Culture - Final NO GROWTH AFTER 5 DAYS 07/25/17 13:50 Blood-Venous Gram Stain - Final TEST NOT PERFORMED 07/25/17 13:50 Blood-Venous Blood Culture - Final NO GROWTH AFTER 5 DAYS 07/25/17 13:50 Blood-Venous Gram Stain - Final TEST NOT PERFORMED Most Recent Lab Values WBC 7.7 K/uL (4.8-10.8) 07/27/17 06:00 RBC 4.31 Mil/uL (4.40-5.90) L 07/27/17 06:00 Hgb 12.0 g/dL (12.0-18.0) 07/27/17 06:00 Hct 36.5 % (35.0-51.0) 07/27/17 06:00 MCV 84.8 fl (80.0-94.0) 07/27/17 06:00 MCH 27.9 pg (27.0-31.0) 07/27/17 06:00 MCHC 32.9 g/dL (33.0-37.0) L 07/27/17 06:00 RDW 12.5 % (11.5-14.5) 07/27/17 06:00 Plt Count 288 K/uL (130-400) 07/27/17 06:00 MPV 8.1 fl (7.2-11.7) 07/27/17 06:00 Neut % (Auto) 45.1 % (50.0-75.0) L 07/27/17 06:00 Lymph % (Auto) 38.7 % (20.0-40.0) 07/27/17 06:00 [place] % (Auto) 8.5 % (0.0-10.0) 07/27/17 06:00 Eos % (Auto) 6.9 % (0.0-4.0) H 07/27/17 06:00 Baso % (Auto) 0.8 % (0.0-2.0) 07/27/17 06:00 Neut # 3.5 K/uL (1.8-7.0) 07/27/17 06:00 Lymph # 3.0 K/uL (1.0-4.3) 07/27/17 06:00 [place] # 0.7 K/uL (0.0-0.8) 07/27/17 06:00 Eos # 0.5 K/uL (0.0-0.7) 07/27/17 06:00 Baso # 0.1 K/uL (0.0-0.2) 07/27/17 06:00 ESR 77 mm/hr (0-15) H 07/30/17 06:00 pO2 64 mm/Hg (30-55) H 07/25/17 12:10 VBG pH 7.44 (7.32-7.43) H 07/25/17 12:10 VBG pCO2 44 mmHg (40-60) 07/25/17 12:10 VBG HCO3 28.7 mmol/L 07/25/17 12:10 VBG Total CO2 31.3 mmol/L (22-28) H 07/25/17 12:10 VBG O2 Sat (Calc) 96.0 % (40-65) H 07/25/17 12:10 VBG Base Excess 5.0 mmol/L (0.0-2.0) H 07/25/17 12:10 VBG Potassium 3.7 mmol/L (3.6-5.2) 07/25/17 12:10 A-a O2 Difference 31.0 mm/Hg 07/25/17 12:10 Sodium 136.0 mmol/L (132-148) 07/25/17 12:10 Chloride 103.0 mmol/L (98-107) 07/25/17 12:10 Glucose 135 mg/dL (75-110) H 07/25/17 12:10 Lactate 1.0 mmol/L (0.7-2.1) 07/25/17 12:10 FiO2 21.0 % 07/25/17 12:10 Sodium 143 mmol/l (132-148) 07/27/17 06:00 Potassium 4.2 MMOL/L (3.6-5.0) 07/27/17 06:00 Chloride 101 mmol/L (98-107) 07/27/17 06:00 Carbon Dioxide 30 mmol/L (22-30) 07/27/17 06:00 Anion Gap 16 (10-20) 07/27/17 06:00 BUN 10 mg/dl (9-20) 07/27/17 06:00 Creatinine 0.8 mg/dl (0.8-1.5) 07/27/17 06:00 Est GFR ( Amer) > 60 07/27/17 06:00 Est GFR (Non-Af Amer) > 60 07/27/17 06:00 Random Glucose 90 mg/dL (75-110) 07/27/17 06:00 Calcium 9.0 mg/dL (8.4-10.2) 07/27/17 06:00 Total Bilirubin 1.0 mg/dl (0.2-1.3) 07/27/17 06:00 AST 52 U/L (17-59) 07/27/17 06:00 ALT 79 U/L (21-72) H D 07/27/17 06:00 Alkaline Phosphatase 121 U/L (38-126) 07/27/17 06:00 Total Creatine Kinase 39 U/L (55-170) L 07/27/17 06:00 C-React Prot High Sens 14.76 mg/L (1.00-3.00) H 07/30/17 06:00 Total Protein 8.1 G/DL (6.3-8.2) 07/27/17 06:00 Albumin 4.0 g/dL (3.5-5.0) 07/27/17 06:00 Globulin 4.1 gm/dL (2.2-3.9) H 07/27/17 06:00 Albumin/Globulin Ratio 1.0 (1.0-2.1) 07/27/17 06:00 Venous Blood Potassium 3.7 mmol/L (3.6-5.2) 07/25/17 12:10 Discharge Exam - Head Exam Head Exam: ATRAUMATIC, NORMAL INSPECTION, NORMOCEPHALIC - Eye Exam Eye Exam: EOMI, Normal appearance, PERRL Pupil Exam: NORMAL ACCOMODATION, PERRL - Respiratory Exam Respiratory Exam: Clear to PA & Lateral, NORMAL BREATHING PATTERN, UNREMARKABLE - Cardiovascular Exam Cardiovascular Exam: REGULAR RHYTHM, RRR, +S1, +S2 - GI/Abdominal Exam GI & Abdominal Exam: Normal Bowel Sounds, Unremarkable - Extremities Exam Extremities exam: full ROM, normal capillary refill, normal inspection, pedal pulses present - Neurological Exam Neurological exam: Alert, CN II-XII Intact, Normal Gait, Oriented x3, Reflexes Normal - Psychiatric Exam Psychiatric exam: Normal Affect, Normal Mood - Skin Skin Exam: Dry, Intact, Normal Color, Warm Discharge Plan - Discharge Medications Prescriptions: ceFAZolin IV 2 gm in Dextrose [Ancef IV 2 gm DUPLEX] 2 gm IVPB Q8 #125 bag oxyCODONE/Acetaminophen [Percocet 5/325 mg Tab] 1 tab PO DAILY PRN #10 tab PRN Reason: Pain, Severe (8-10) - Follow Up Plan Condition: STABLE Disposition: HOME/ ROUTINE Instructions: Daptomycin (By injection), Wound Infection (DC), Osteomyelitis ( DC), Peripherally Inserted Central Catheters and Midline Catheters (DC) Additional Instructions: [facility] antibioticos final dx-om r elbow, surgical site infection f/u infusion center for [facility] [address], [place] [id number] appt doing well, no complaints. no f/c, n/v/d. cleared by orhto/ID for dc Referrals: Vera Ashley MD [Staff Provider] - Radhames Gómez MD [Medical Doctor] -
[2017-07-30 17:03] VITALS: BP 116/71; PULSE 77; RESP 18; O2SAT 96
== END 2017-07-30 18:01 | disposition home or self-care (01) | DRG 863 ==
LOC: H.ER 11:09 → H.ERHOLD 15:15 → H.MEDSURG1 16:03
PROVIDERS: ADMIT Family Medicine; ATTEND Family Medicine
PROC: 02HV33Z Insertion of Infusion Device into Superior Vena Cava, Percutaneous Approach (ICD-10-PCS; principal; 2017-07-25)
PROC: B518ZZA Fluoroscopy of Superior Vena Cava, Guidance (ICD-10-PCS; 2017-07-25)
PROC: B548ZZA Ultrasonography of Superior Vena Cava, Guidance (ICD-10-PCS; 2017-07-25)
PROC: 3E0234Z Introduction of Serum, Toxoid and Vaccine into Muscle, Percutaneous Approach (ICD-10-PCS; 2017-07-25)
DX: T81.4XXA Infection following a procedure, initial encounter (principal); M00.9 Pyogenic arthritis, unspecified; M86.9 Osteomyelitis, unspecified; L03.90 Cellulitis, unspecified; Z87.891 Personal history of nicotine dependence; R11.0 Nausea; R21 Rash and other nonspecific skin eruption; B95.61 Methicillin susceptible Staphylococcus aureus infection as the cause of diseases classified elsewhere; L29.9 Pruritus, unspecified; Z91.81 History of falling; Z23 Encounter for immunization

== ENCOUNTER 2017-09-17 16:26 | Emergency (ER) | payer SELFPAY ==
[2017-09-17 16:27] VITALS: BMI 29.0
[2017-09-17 16:49] VITALS: BP 134/80; PULSE 88; RESP 16; TEMP 97.9; O2SAT 97
--- NOTE | 2017-09-17 19:32 | ED PDOC ---
HPI: Skin/Bite Injury Time Seen by Provider: 09/17/17 16:50 Chief Complaint (Nursing): Abnormal Skin Integrity Chief Complaint (Provider): Rash History Per: Patient History/Exam Limitations: no limitations Onset/Duration Of Symptoms: Days (x5) Current Symptoms Are (Timing): Still Present Location Of Injury: Right: Back (mid), Chest, Forearm (medial aspect), Hand Quality Of Symptoms: Painful, Itching Additional Complaint(s): Murtaza Russell is a 27 year old male, with no significant past medical history, who presents to the emergency department complaining of an itchy, and painful rash onset for x5 days. The rash is localized to the right mid back and right chest going down the medial aspect of the entire right arm extending to palm. He denies any fever, chills, URI symptoms, trauma, injury, changes in soaps/lotions, taking any new medications or food, has no other medical complaints. PMD: Vera Ashley Past Medical History Reviewed: Historical Data, Nursing Documentation, Vital Signs Vital Signs: Last Vital Signs Temp 97.9 F 09/17/17 16:47 Pulse 88 09/17/17 16:47 Resp 16 09/17/17 16:47 BP 134/80 09/17/17 16:47 Pulse Ox 97 09/17/17 19:39 - Medical History PMH: Fractures - Surgical History Surgical History: No Surg Hx - Family History Family History: States: Unknown Family Hx - Social History Ex-Smoker (has not smoked in the last 12 months): Yes Alcohol: None Drugs: Denies - Immunization History Hx Tetanus Toxoid Vaccination: No Hx Influenza Vaccination: No Hx Pneumococcal Vaccination: No - Home Medications Home Medications: Ambulatory Orders Medication Instructions Recorded ceFAZolin IV 2 gm in Dextrose 2 gm IVPB Q8 #125 bag 07/30/17 [Ancef IV 2 gm DUPLEX] oxyCODONE/Acetaminophen [Percocet 1 tab PO DAILY PRN #10 tab 07/30/17 5/325 mg Tab] Acyclovir [Zovirax] 800 mg PO 5XD #35 tablet 09/17/17 - Allergies Allergies/Adverse Reactions: Allergies Allergy/AdvReac Type Severity Reaction Status Date / Time No Known Allergies Allergy Verified 08/14/17 13:53 Review of Systems ROS Statement: Except As Marked, All Systems Reviewed And Found Negative Constitutional: Negative for: Fever, Chills (right mid back and chest going down medial aspect of entire right arm extending to palm) Skin: Positive for: Rash Physical Exam - Reviewed Nursing Documentation Reviewed: Yes Vital Signs Reviewed: Yes - Physical Exam Comments: GENERAL APPEARANCE: Patient is awake, alert, oriented x 3, in no distress. SKIN: warm and dry, (+) erythematous vesicular rash to right mid back and right chest extending to the medial aspect of entire right arm extending to palm. PULMONARY: lungs clear, no rhonchi, no wheezing. CARDIAC: regular rate and rhythm, no murmur, no gallop. ABDOMEN: soft, nontender. EXTREMITIES: no deformity, full range of motion, no tenderness. - ECG O2 Sat by Pulse Oximetry: 97 (RA) Pulse Ox Interpretation: Normal Medical Decision Making Medical Decision Making: Initial Impression: Shingles Initial Plan: --Zovirax 800 mg PO --reevaluation 18:45 --Diagnosis of shingles d/w the patient. Advised to follow up with primary care physician or the clinic in 1-2 days without fail. Advised to take medication as prescribed. Return to the emergency room at any time for any new or worsening symptoms. Patient states he fully agrees with and understands discharge instructions. States that he agrees with the plan and disposition. Verbalized and repeated discharge instructions and plan. I have given the patient opportunity to ask any additional questions. ~ Scribe Attestation: Documented by Shaq Kohli, acting as a scribe for Claribel Russell PA-C. Provider Scribe Attestation: All medical record entries made by the Scribe were at my direction and personally dictated by me. I have reviewed the chart and agree that the record accurately reflects my personal performance of the history, physical exam, medical decision making, and the department course for this patient. I have also personally directed, reviewed, and agree with the discharge instructions and disposition. Disposition - Clinical Impression Clinical Impression: Herpes zoster - Patient ED Disposition Is Patient to be Admitted: No Counseled Patient/Family Regarding: Diagnosis, Need For Followup, Rx Given - Disposition Disposition: Routine/Home Disposition Time: 18:45 Condition: STABLE Additional Instructions: Thank you for letting us take care of you today. You were treated for herpes zoster. The emergency medical care you received today was directed at your acute symptoms. If you were prescribed any medication, please fill it and take as directed. It may take several days for your symptoms to resolve. Return to the Emergency Department if your symptoms worsen, do not improve, or if you have any other problems. Please contact your doctor in 2 days for re-evaluation and follow up / or call one of the physicians/clinics you have been referred to that are listed on the Patient Visit Information form that is included in your discharge packet. Bring any paperwork you were given at discharge with you along with any medications you are taking to your follow up visit. Our treatment cannot replace ongoing medical care by a primary care provider (PCP) outside of the emergency department. Thank you for allowing the [facility] team to be part of your care today. 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
== END 2017-09-17 18:48 | disposition home or self-care (01) ==
LOC: H.ER 16:26
DX: B02.9 Zoster without complications (principal)

== ENCOUNTER 2017-10-16 11:18 | Inpatient (IN) | payer OTHER ==
[2017-10-16 11:20] VITALS: BMI 29.0
[2017-10-16] MEDS ORDERED: Vancomycin 500 mg Inj IVPB STA (12:00)
--- NOTE | 2017-10-16 12:04 | ED PDOC ---
HPI: General Adult Time Seen by Provider: 10/16/17 12:01 Chief Complaint (Nursing): Abnormal Skin Integrity Chief Complaint (Provider): ELBOW WOUND History Per: Patient (27 Y/O MALE HERE WITH RIGHT ELBOW DISCHARGE FROM WOUND. PATIENT HAS HAD ELBOW FX WITH SX AT [place] 05/17. WAS SEEN 07/19 FOR OPERATIVE INTERVENTION OF SEPTIC JOINT. HAS BEEN ON DOXYCYCLINE BUT SEEN BY PEDRO TODAY AND SENT TO ED FOR ADMISSION AND OR EVALUATION OF INFECTED HARDWARE. PATIENT DENIES ANY FEVER/CHILLS/VOMITING.) Past Medical History Reviewed: Historical Data, Nursing Documentation, Vital Signs Vital Signs: Last Vital Signs Temp 98.1 F 10/16/17 13:12 Pulse 88 10/16/17 13:12 Resp 14 10/16/17 13:12 BP 118/78 10/16/17 13:12 Pulse Ox 98 10/16/17 13:12 - Medical History PMH: Fractures - Family History Family History: States: Unknown Family Hx - Immunization History Hx Tetanus Toxoid Vaccination: No Hx Influenza Vaccination: No Hx Pneumococcal Vaccination: No - Home Medications Home Medications: Ambulatory Orders Medication Instructions Recorded Doxycycline Hyclate [Doryx] 100 mg PO Q12 10/16/17 - Allergies Allergies/Adverse Reactions: Allergies Allergy/AdvReac Type Severity Reaction Status Date / Time No Known Allergies Allergy Verified 08/14/17 13:53 Review of Systems ROS Statement: Except As Marked, All Systems Reviewed And Found Negative Physical Exam - Reviewed Nursing Documentation Reviewed: Yes Vital Signs Reviewed: Yes - Physical Exam Appears: Positive for: Well, Non-toxic, No Acute Distress Head Exam: Positive for: ATRAUMATIC, NORMAL INSPECTION, NORMOCEPHALIC Skin: Positive for: Normal Color, Warm, DRY Eye Exam: Positive for: EOMI, Normal appearance, PERRL ENT: Positive for: Normal ENT Inspection Neck: Positive for: Normal, Painless ROM Cardiovascular/Chest: Positive for: Regular Rate, Rhythm Respiratory: Positive for: CNT, Normal Breath Sounds Gastrointestinal/Abdominal: Positive for: Normal Exam, Bowel Sounds, Soft Back: Positive for: Normal Inspection Extremity: Positive for: Normal ROM, Other (NO SIGNS OF CELLULITIS. TENDER RIGHT ELBOW. PRULULENT DISCHARGE EXPRESSED FROM WOUND.) Neurologic/Psych: Positive for: Alert, Oriented - Laboratory Results Result Diagrams: 10/16/17 12:12 - ECG O2 Sat by Pulse Oximetry: 98 - Progress ED Course And Treament: D/W DR. VASQUEZ. PATIENT TO OR TODAY VANCOMYCIN 1.25 GM IV d/w Dr. Allen Disposition - Clinical Impression Clinical Impression: Wound infection complicating hardware, Septic joint - Patient ED Disposition Is Patient to be Admitted: Yes - Disposition Disposition: Routine/Home Disposition Time: 14:31 Condition: FAIR Forms: [employer] (Namibian) - Pt Status Changed To: Hospital Disposition Of: Inpatient - Admit Certification Admit to Inpatient:: After my assessment, the patient will require hospitalization for at least two midnights. This is because of the severity of symptoms shown, intensity of services needed, and/or the medical risk in this patient being treated as an outpatient.
[2017-10-16] MEDS ORDERED: Morphine 4 MG/ML VIAL IVP ONE (12:31)
[2017-10-16] MEDS ORDERED: Morphine 4 MG/ML VIAL ONE (12:32)
[2017-10-16 12:35] LABS: VENOUS BLOOD GAS BASE EXCESS 3.3 mmol/L (0.0-2.0); VENOUS BLOOD GAS PCO2 50 mmHg (40-60); VENOUS BLOOD GAS PO2 28 mm/Hg (30-55); VENOUS BLOOD PH 7.38 (7.32-7.43)
[2017-10-16 12:53] LABS: BASO # 0.1 K/uL (0.0-0.2); BASO % 0.8 % (0.0-2.0); EOS # 0.5 K/uL (0.0-0.7); EOS % 6.3 % (0.0-4.0); HEMOGLOBIN 14.6 g/dL (12.0-18.0); LYMPH # 3.1 K/uL (1.0-4.3); LYMPH % 40.9 % (20.0-40.0); MEAN CORPUSCULAR HEMOGLOBIN 28.3 pg (27.0-31.0); MEAN CORPUSCULAR HGB CONC 33.7 g/dL (33.0-37.0); MEAN PLATELET VOLUME 8.8 fl (7.2-11.7); MONO # 0.5 K/uL (0.0-0.8); MONO % 6.1 % (0.0-10.0); NEUT # 3.5 K/uL (1.8-7.0); NEUT % 45.9 % (50.0-75.0); NRBC % 0.1 % (0.0-0.0); RBC 5.14 Mil/uL (4.40-5.90); RED CELL DISTRIBUTION WIDTH 13.8 % (11.5-14.5); WHITE BLOOD COUNT 7.6 K/uL (4.8-10.8)
[2017-10-16] MEDS ORDERED: Lidocaine 1% Inj (20ml) ONE ×2 (13:48→15:04)
[2017-10-16] MEDS ORDERED: Rocuronium 10 mg/ml (5 ml) ONE (14:54)
[2017-10-16] MEDS ORDERED: Succinylcholine 200 mg/10 ml Inj IV ONE (14:54)
[2017-10-16] MEDS ORDERED: Propofol 10 mg/ml Inj (20 ML) ONE (14:54)
[2017-10-16] MEDS ORDERED: Bupivacaine 0.5% Inj(30mL) ONE (15:04)
[2017-10-16] MEDS ORDERED: Lactated Ringer's 1,000 ML IV ONE ×2 (15:15→17:07)
[2017-10-16] MEDS ORDERED: Midazolam 2 MG/2 ML VIAL ONE (15:18)
[2017-10-16] MEDS ORDERED: Desflurane Inhalation Anesthetic Liq (240 ml) ONE (15:54)
[2017-10-16] MEDS ORDERED: Vancomycin 1 g Inj IVPB ONE (16:30)
--- NOTE | 2017-10-16 16:37 | PCM.ANESB4 ---
Infraclavicular Block - Femoral Nerve Block Date of Procedure: 10/16/17 Anesthesiologist: Ernesto Pre-Procedure Diagnosis: Infected hardware right elbow Post-Procedure Diagnosis: Same Procedure Performed: Brachial Plexus at the Infraclavicular area Right - Procedure Infraclavicular Block: The supraclavicular block was performed at request of Dr Madden. The procedure was explained to the patient that it is for the post-operative pain management. Consent was obtained after a thorough discussion with the patient regarding the benefits and possible complications of local anesthetic block of the brachial plexus at the supraclavicular area. The patient was brought to the operating room and standard monitors were applied. Time-out was held with the circulating nurse to confirm the correct surgery and the appropriate block. After applying oxygen by nasal cannula and administering IV Sedation, patient's head was gently rotated away from the operative right___ shoulder and the area medial to the coracoid process and superior to the clavicle was carefully palpated. The ultrasound transducer was then applied to the skin in the transverse plane and the brachial plexus was visualized adjacent to the subclavian artery and superior to the pleura and first rib. After thorough identification, this area was prepped with Chloraprep and 1 % Lidocaine was injected subcutaneously for topical anesthesia. At this point, a #21 gauge Stimuplex 2-inch needle was inserted lateral to the ultrasound transducer and superior to the clavicle in-plane towards the axillary artery. Needle advancement was performed carefully under ultrasound visualization always superior to the pleura and first rib. Nerve stimulator was used and twitch of the affected extremity including fingers, hand, wrist and elbow was obtained at current of _0.4___MA. After repeated negative aspiration, __2___cc of _2____% __lidocaine was injected and this was followed with ___8___ cc of ____2___ % lidocaine and 20 cc of 0.5% bupivicaine with 1:200,000 epinephrine . Under ultrasound guidance the local anesthetics were observed surrounding nerves of the brachial plexus. The needle was removed intact. The patient had stable vital signs, was conscious and in no apparent distress. The patient tolerated the supraclavicular block of the brachial plexus well with stable vital signs was prepared for subsequent surgery.
--- NOTE | 2017-10-16 17:17 | RAD ---
PROCEDURE: Radiographs of the right elbow. Go to HISTORY: ELBOW PAIN COMPARISON: 10/12/2017 FINDINGS: BONES: No acute fractures. Stable findings in the proximal right radius and ulna. No evidence of orthopedic hardware failure. JOINTS: Normal. No osteoarthritis. SOFT TISSUES: Normal. JOINT EFFUSION: None. OTHER FINDINGS: None. IMPRESSION: No significant interval change compared to the prior examination(s).
[2017-10-16] MEDS: HYDROmorphone 0.5 mg/0.5 ml ISec IVP PRN ×2 (17:39→17:40)
--- NOTE | 2017-10-16 17:54 | RAD ---
PROCEDURE: Radiographs of the right elbow. HISTORY: s/p removal hardware right elbow COMPARISON: Preoperative study October 16, 2017. 12:44 FINDINGS: BONES: Expected findings following removal orthopedic hardware proximal right ulna. JOINTS: Postoperative changes/ surgical drains. SOFT TISSUES: Expected postoperative soft tissue swelling. JOINT EFFUSION: None. OTHER FINDINGS: None. IMPRESSION: Satisfactory postoperative status.
[2017-10-16] MEDS ORDERED: DiphenhydrAMINE 50 mg/ml Inj IVP STA (18:09)
[2017-10-16] MEDS ORDERED: DiphenhydrAMINE 50 mg/ml Inj ONE (18:11)
[2017-10-17] MEDS: Oxycodone/Acetaminophen 5/325 mg Tab PO PRN ×4 (01:38→16:53)
[2017-10-17] MEDS: Lactated Ringer's 1,000 ML IV SCH ×3 (03:32→23:15)
[2017-10-17 09:55] LABS: ALBUMIN 3.9 g/dL (3.5-5.0); ALT/SGPT 47 U/L (21-72); AST/SGOT 27 U/L (17-59); BLOOD UREA NITROGEN 13 mg/dl (9-20); GFR AFRICAN-AMERICAN > 60; GFR NON-AFRICAN AMERICAN > 60
--- NOTE | 2017-10-17 12:53 | CP.PCM.CON ---
Past Patient History - Infectious Disease Hx of Infectious Diseases: None - Past Medical History & Family History Past Medical History?: No - Past Social History Smoking Status: Never Smoked - MUSCULOSKELETAL/RHEUMATOLOGICAL Hx Fractures: Yes - PSYCHIATRIC Hx Emotional Abuse: No Hx Physical Abuse: No Hx Substance Use: No - SURGICAL HISTORY Hx Surgeries: Yes Hx Orthopedic Surgery: Yes (06/17/17 bone repair both elbows) - ANESTHESIA Hx Anesthesia: Yes Hx Anesthesia Reactions: No Hx Malignant Hyperthermia: No Meds Allergies/Adverse Reactions: Allergies Allergy/AdvReac Type Severity Reaction Status Date / Time No Known Allergies Allergy Verified 08/14/17 13:53 - Medications Medications: Current Medications Docusate Sodium (Colace) 100 mg PO BID BRIAN Cefazolin Sodium 1 gm/ (Dextrose) 100 mls @ 100 mls/hr IVPB Q8 [facility] PRN Reason: Protocol Last Admin: 10/17/17 08:36 Dose: 100 mls/hr Lactated Ringer's (Lactated Ringer's) 1,000 mls @ 100 mls/hr IV .Q10H BRIAN Last Admin: 10/17/17 03:33 Dose: Not Given Vancomycin HCl 1 gm/ Sodium (Chloride) 250 mls @ 166.667 mls/hr IVPB Q12@0100, 1300 BRIAN PRN Reason: Protocol Last Admin: 10/17/17 12:02 Dose: 166.667 mls/hr Ibuprofen (Motrin Tab) 600 mg PO Q6 PRN PRN Reason: Pain, moderate (4-7) Ondansetron HCl (Zofran Inj) 4 mg IVP Q6 PRN PRN Reason: Nausea/Vomiting Last Admin: 10/17/17 10:12 Dose: 4 mg Oxycodone/Acetaminophen (Percocet 5/325 Mg Tab) 2 tab PO Q4 PRN PRN Reason: Pain, moderate (4-7) Stop: 10/19/17 16:54 Last Admin: 10/17/17 12:38 Dose: 2 tab Results - Vital Signs Recent Vital Signs: Last Vital Signs Temp 97.9 F 10/17/17 08:08 Pulse 84 10/17/17 08:08 Resp 20 10/17/17 08:08 BP 119/72 10/17/17 08:08 Pulse Ox 95 10/17/17 08:08 - Labs Result Diagrams: 10/16/17 12:12 10/17/17 09:20 Labs: Laboratory Results - last 24 hr 10/16/17 10/17/17 12:12 09:20 WBC 7.6 RBC 5.14 Hgb 14.6 Hct 43.1 MCV 84.0 MCH 28.3 MCHC 33.7 RDW 13.8 Plt Count 295 MPV 8.8 Neut % (Auto) 45.9 L Lymph % (Auto) 40.9 H [place] % (Auto) 6.1 Eos % (Auto) 6.3 H Baso % (Auto) 0.8 Neut # (Auto) 3.5 Lymph # (Auto) 3.1 [place] # (Auto) 0.5 Eos # (Auto) 0.5 Baso # (Auto) 0.1 Sodium 139 Potassium 3.8 Chloride 100 Carbon Dioxide 27 Anion Gap 16 BUN 13 Creatinine 0.6 L Est GFR ( Amer) > 60 Est GFR (Non-Af Amer) > 60 Random Glucose 140 H Calcium 9.0 Total Bilirubin 0.6 AST 27 ALT 47 Alkaline Phosphatase 100 Total Protein 7.6 Albumin 3.9 Globulin 3.8 Albumin/Globulin Ratio 1.0
--- NOTE | 2017-10-17 22:46 | CP.PCM.HP ---
History of Present Illness - History of Present Illness History of Present Illness: Cc: Right elbow wound with drainage A 27 year old male with no significant pmhx who was sent to the ED by Dr. Gómez for evaluation of wound drainage and removal of infected hardware of the right elbow. The patient initially had b/l elbow surgeries in [place] on 05/17/17 following an injury at work. The patient was last admitted at [facility] on for right elbow osteomyelitis. The patient was discharged on 6 weeks of Daptomycin. The patient was later put on Doxycycline by Dr. Whittaker. The patient then saw Dr. Gómez who noticed drainage from the right elbow wound and sent pt to ED. The patient denies cp, sob, fever, chills, weakness, numbness or paresthesias. The patient is s/p removal of hardware and wound washout to the right elbow. Present on Admission - Present on Admission Any Indicators Present on Admission: No Review of Systems - Review of Systems All systems: reviewed and no additional remarkable complaints except (as stated) - Constitutional Constitutional: As Per HPI - Cardiovascular Cardiovascular: As Per HPI - Respiratory Respiratory: As Per HPI - Musculoskeletal Musculoskeletal: As Per HPI, Joint Swelling, Limited Range of Motion (right elbow) - Neurological Neurological: As Per HPI Past Patient History - Infectious Disease Hx of Infectious Diseases: None - Past Medical History & Family History Past Medical History?: No - Past Social History Smoking Status: Never Smoked - MUSCULOSKELETAL/RHEUMATOLOGICAL Hx Fractures: Yes - PSYCHIATRIC Hx Emotional Abuse: No Hx Physical Abuse: No Hx Substance Use: No - SURGICAL HISTORY Hx Surgeries: Yes Hx Orthopedic Surgery: Yes (06/17/17 bone repair both elbows) - ANESTHESIA Hx Anesthesia: Yes Hx Anesthesia Reactions: No Hx Malignant Hyperthermia: No Meds Home Medications: Home Medication List Medication Instructions Recorded Confirmed Type DAPTOmycin [Cubicin] 500 mg IV DAILY 42 Days #42 vial 10/19/17 Rx Allergies/Adverse Reactions: Allergies Allergy/AdvReac Type Severity Reaction Status Date / Time No Known Allergies Allergy Verified 08/14/17 13:53 Physical Exam - Constitutional Appears: Well, No Acute Distress - Head Exam Head Exam: ATRAUMATIC, NORMOCEPHALIC - Eye Exam Eye Exam: EOMI, Normal appearance, PERRL Pupil Exam: NORMAL ACCOMODATION - ENT Exam ENT Exam: Mucous Membranes Moist, Normal Exam - Neck Exam Neck exam: Positive for: Full Rom, Normal Inspection - Respiratory Exam Respiratory Exam: Clear to Auscultation Bilateral, NORMAL BREATHING PATTERN - Cardiovascular Exam Cardiovascular Exam: REGULAR RHYTHM, +S1, +S2 - GI/Abdominal Exam GI & Abdominal Exam: Normal Bowel Sounds, Soft - Rectal Exam Rectal Exam: Deferred - Extremities Exam Extremities exam: Positive for: joint swelling (limited ROM, right elbow. ERNESTO drain in place, sarah dressing) - Back Exam Back exam: NORMAL INSPECTION - Neurological Exam Neurological exam: Alert, Oriented x3 - Psychiatric Exam Psychiatric exam: Normal Affect, Normal Mood - Skin Skin Exam: Normal Color, Warm Results - Vital Signs Recent Vital Signs: Last Vital Signs Temp 97.8 F 10/17/17 16:11 Pulse 83 10/17/17 16:11 Resp 20 10/17/17 16:11 BP 127/70 10/17/17 16:11 Pulse Ox 95 10/17/17 16:11 - Labs Result Diagrams: 10/18/17 04:45 10/18/17 04:45 Labs: Laboratory Results - last 24 hr 10/17/17 09:20 Sodium 139 Potassium 3.8 Chloride 100 Carbon Dioxide 27 Anion Gap 16 BUN 13 Creatinine 0.6 L Est GFR ( Amer) > 60 Est GFR (Non-Af Amer) > 60 Random Glucose 140 H Calcium 9.0 Total Bilirubin 0.6 AST 27 ALT 47 Alkaline Phosphatase 100 Total Protein 7.6 Albumin 3.9 Globulin 3.8 Albumin/Globulin Ratio 1.0 Assessment & Plan (1) Wound infection Status: Acute - Assessment and Plan (Free Text) Assessment: 27 year old with no significant pmhx presenting with right elbow wound infection , pt is s/p wound washout and removal of hardware Plan: Antibiotics - Ancef/Vancomycin ID consult Ortho on board F/u woud cultures Will require LT IV antibiotics
[2017-10-18] MEDS: Oxycodone/Acetaminophen 5/325 mg Tab PO PRN ×4 (00:36→22:52)
[2017-10-18 05:32] LABS: HEMOGLOBIN 13.6 g/dL (12.0-18.0); MEAN CELL VOLUME 85.1 fl (80.0-94.0); MEAN CORPUSCULAR HEMOGLOBIN 28.4 pg (27.0-31.0); MEAN CORPUSCULAR HGB CONC 33.3 g/dL (33.0-37.0); RBC 4.78 Mil/uL (4.40-5.90); RED CELL DISTRIBUTION WIDTH 13.6 % (11.5-14.5); WHITE BLOOD COUNT 10.3 K/uL (4.8-10.8)
[2017-10-18 05:54] LABS: BLOOD UREA NITROGEN 13 mg/dl (9-20); CALCIUM 8.7 mg/dL (8.4-10.2); GFR AFRICAN-AMERICAN > 60; GFR NON-AFRICAN AMERICAN > 60
[2017-10-18] MEDS: Enoxaparin 40 mg Syringe SC SCH (12:00)
--- NOTE | 2017-10-18 12:20 | CP.PCM.CON ---
History of Present Illness - History of Present Illness History of Present Illness: 27 Y/O MALE HERE WITH RIGHT ELBOW DISCHARGE FROM WOUND. PATIENT HAS HAD ELBOW FX WITH SX AT [facility] 05/17. WAS SEEN 07/19 FOR OPERATIVE INTERVENTION OF SEPTIC JOINT. HE WAS TREATED WITH 6 WEEKS OF CUBICIN AFTER WASHOUT IN [place] CAME TO OFFICE 2 WEEKS AGO WITH DRAINAGE STARTED ON DOXY AND RECOMMENDED REMOVAL OF HARDWARE WHICH WAS JUST DONE CULTURES SHOW MSSA AGAIN WILL D/C HOME ON IV ANTIBIOTICS AGAIN Review of Systems - Review of Systems All systems: reviewed and no additional remarkable complaints except - Constitutional Constitutional: As Per HPI - EENT Eyes: absent: As Per HPI, Blind Spots, Blurred Vision, Change in Vision, Decreased Night Vision, Diplopia, Discharge, Dry Eye, Exophthalmos, Floaters, Irritation, Itchy Eyes, Loss of Peripheral Vision, Pain, Photophobia, Requires Corrective Lenses, Sees Flashes, Spots in Vision, Tunnel Vision, Other Visual Disturbances, Loss of Vision, Other Ears: absent: As Per HPI, Decreased Hearing, Ear Discharge, Ear Pain, Tinnitus, Abnormal Hearing, Disequilibrium, Dizziness, Other Nose/Mouth/Throat: absent: As Per HPI, Epistaxis, Nasal Congestion, Nasal Discharge, Nasal Obstruction, Nasal Trauma, Nose Pain, Post Nasal Drip, Sinus Pain, Sinus Pressure, Bleeding Gums, Change in Voice, Dental Pain, Dry Mouth, Dysphagia, Halitosis, Hoarsness, Lip Swelling, Mouth Lesions, Mouth Pain, Odynophagia, Sore Throat, Throat Swelling, Tongue Swelling, Facial Pain, Neck Pain, Neck Mass, Other - Cardiovascular Cardiovascular: absent: As Per HPI, Acrocyanosis, Chest Pain, Chest Pain at Rest , Chest Pain with Activity, Claudication, Diaphoresis, Dyspnea, Dyspnea on Exertion, Edema, Irregular Heart Rhythm, Pain Radiating to Arm/Neck/Jaw, Leg Edema, Leg Ulcers, Lightheadedness, Orthopnea, Palpitations, Paroxysmal Nocturnal Dyspnea, Pedal Edema, Radiating Pain, Rapid Heart Rate, Slow Heart Rate, Syncope, Other - Respiratory Respiratory: absent: As Per HPI, Cough, Dyspnea, Hemoptysis, Dyspnea on Exertion , Wheezing, Snoring, Stridor, Pain on Inspiration, Chest Congestion, Excessive Mucous Production, Change in Mucous Color, Pain with Coughing, Other - Gastrointestinal Gastrointestinal: absent: As Per HPI, Abdominal Pain, Belching, Bloating, Change in Bowel Habits, Change in Stool Character, Coffee Ground Emesis, Constipation, Cramping, Diarrhea, Dyspepsia, Dysphagia, Early Satiety, Excessive Flatus, Fecal Incontinence, Heartburn, Hematemesis, Hematochezia, Loose Stools, Melena, Nausea, Odynophagia, Temesmus, Vomiting, Other - Genitourinary Genitourinary: absent: As Per HPI, Change in Urinary Stream, Difficulty Urinating, Dysuria, Flank Pain, Hematuria, Pyuria, Nocturia, Urinary Incontinence, Urinary Frequency, Urinary Hesitance, Urinary Urgency, Voiding Freq/Small Amts, Freq UTI, Hx Renal/Bladder Calculi, Hx /Renal Surgery, Bladder Distension, Other - Musculoskeletal Musculoskeletal: As Per HPI - Integumentary Integumentary: As Per HPI - Neurological Neurological: absent: As Per HPI, Abnormal Gait, Abnormal Hearing, Abnormal Movements, Abnormal Speech, Behavioral Changes, Burning Sensations, Confusion, Convulsions, Disequilibrium, Dizziness, Numbness, Focal Weakness, Frequent Falls , Headaches, Lack of Coordination, Loss of Vision, Memory Loss, Paresthesias, Radicular Pain, Restless Legs, Sensory Deficit, Syncope, Tingling, Tremor, Vertigo, Weakness, Other Visual Disturbances, Other - Psychiatric Psychiatric: absent: As Per HPI, Abnormal Sleep Pattern, Anhedonia, Anxiety, Auditory Hallucinations, Behavioral Changes, Change in Appetite, Change in Libido, Confusion, Depression, Difficulty Concentrating, Hallucinations, Homicidal Ideation, Hopelessness, Irritability, Memory Loss, Mood Swings, Panic Attacks, Paranoia, Suicidal Ideation, Visual Hallucinations, Tactile Hallucinations, Other - Endocrine Endocrine: absent: As Per HPI, Change in Body Appearance, Change in Libido, Cold Intolorance, Deepening of Voice, Excessive Sweating, Fatigue, Flushing, Heat Intolorance, Increase in Ring/Shoe/Hat Size, Palpitations, Polydipsia, Polyphagia, Polyuria, Other - Hematologic/Lymphatic Hematologic: absent: As Per HPI, Easy Bleeding, Easy Bruising, Lymphadenopathy, Other Past Patient History - Infectious Disease Hx of Infectious Diseases: None - Past Medical History & Family History Past Medical History?: No - Past Social History Smoking Status: Never Smoked - MUSCULOSKELETAL/RHEUMATOLOGICAL Hx Fractures: Yes - PSYCHIATRIC Hx Emotional Abuse: No Hx Physical Abuse: No Hx Substance Use: No - SURGICAL HISTORY Hx Surgeries: Yes Hx Orthopedic Surgery: Yes (06/17/17 bone repair both elbows) - ANESTHESIA Hx Anesthesia: Yes Hx Anesthesia Reactions: No Hx Malignant Hyperthermia: No Meds Allergies/Adverse Reactions: Allergies Allergy/AdvReac Type Severity Reaction Status Date / Time No Known Allergies Allergy Verified 08/14/17 13:53 - Medications Medications: Current Medications Docusate Sodium (Colace) 100 mg PO BID [facility] Last Admin: 10/18/17 08:12 Dose: 100 mg Enoxaparin Sodium (Lovenox) 40 mg SC DAILY [facility] PRN Reason: Protocol Last Admin: 10/18/17 12:00 Dose: 40 mg Cefazolin Sodium 1 gm/ (Dextrose) 100 mls @ 100 mls/hr IVPB Q8 [facility] PRN Reason: Protocol Last Admin: 10/18/17 08:12 Dose: 100 mls/hr Lactated Ringer's (Lactated Ringer's) 1,000 mls @ 100 mls/hr IV .Q10H [facility] Last Admin: 10/17/17 23:15 Dose: Not Given Vancomycin HCl 1 gm/ Sodium (Chloride) 250 mls @ 166.667 mls/hr IVPB Q12@0100, 1300 BRIAN PRN Reason: Protocol Last Admin: 10/18/17 12:00 Dose: 166.667 mls/hr Ibuprofen (Motrin Tab) 600 mg PO Q6 PRN PRN Reason: Pain, moderate (4-7) Last Admin: 10/18/17 08:12 Dose: 600 mg Ondansetron HCl (Zofran Inj) 4 mg IVP Q6 PRN PRN Reason: Nausea/Vomiting Last Admin: 10/17/17 10:12 Dose: 4 mg Oxycodone/Acetaminophen (Percocet 5/325 Mg Tab) 2 tab PO Q4 PRN PRN Reason: Pain, moderate (4-7) Stop: 10/19/17 16:54 Last Admin: 10/18/17 00:36 Dose: 2 tab Physical Exam - Constitutional Appears: Non-toxic, Chronically Ill - Head Exam Head Exam: NORMOCEPHALIC - Eye Exam Eye Exam: PERRL. absent: Scleral icterus - ENT Exam ENT Exam: Mucous Membranes Dry - Neck Exam Neck exam: Negative for: Lymphadenopathy - Respiratory Exam Respiratory Exam: Decreased Breath Sounds - Cardiovascular Exam Cardiovascular Exam: REGULAR RHYTHM, +S1, +S2 - GI/Abdominal Exam GI & Abdominal Exam: Diminished Bowel Sounds, Soft. absent: Tenderness - Rectal Exam Rectal Exam: Deferred - Exam Exam: NORMAL INSPECTION - Extremities Exam Extremities exam: Negative for: pedal edema - Back Exam Back exam: absent: CVA tenderness (L), CVA tenderness (R) - Neurological Exam Neurological exam: Alert, CN II-XII Intact, Oriented x3, Reflexes Normal - Psychiatric Exam Psychiatric exam: Normal Mood - Skin Skin Exam: Dry Additional comments: RIGHT ELBOW DRAIN + Results - Vital Signs Recent Vital Signs: Last Vital Signs Temp 97.2 F L 10/18/17 07:31 Pulse 76 10/18/17 07:31 Resp 19 10/18/17 07:31 BP 106/70 10/18/17 07:31 Pulse Ox 96 10/18/17 07:31 - Labs Result Diagrams: 10/18/17 04:45 10/18/17 04:45 Labs: Laboratory Results - last 24 hr 10/18/17 10/18/17 04:45 04:45 WBC 10.3 RBC 4.78 Hgb 13.6 Hct 40.7 MCV 85.1 MCH 28.4 MCHC 33.3 RDW 13.6 Plt Count 293 Sodium 140 Potassium 4.2 Chloride 101 Carbon Dioxide 26 Anion Gap 17 BUN 13 Creatinine 0.7 L Est GFR ( Amer) > 60 Est GFR (Non-Af Amer) > 60 Random Glucose 91 Calcium 8.7 Assessment & Plan (1) Septic joint Status: Acute (2) Wound infection complicating hardware Status: Acute (3) Osteomyelitis Status: Acute - Assessment and Plan (Free Text) Assessment: CONT IV RX FOR 6 WEEKS WITH TELEVANCIN DAILY OR CUBICIN OR ANCEF 2G Q8H
[2017-10-18] MEDS ORDERED: DAPTOmycin 500 mg Inj (Cubicin) IV SCH (13:30)
[2017-10-18] MEDS ORDERED: Lidocaine 1% Inj (20ml) ONE (14:17)
--- NOTE | 2017-10-18 14:41 | PCM.SURG1 ---
Surgeon's Initial Post Op Note - Surgeon's Notes Surgeon: Davian Helm MD Fitness Worker: NONE Type of Anesthesia: Local Pre-Operative Diagnosis: Infection Operative Findings: US showed patent left basilic vein Post-Operative Diagnosis: Infection Operation Performed: Single lumen picc left basilic vein, 39 cm. Tip is in the SVC. Specimen/Specimens Removed: NONE Estimated Blood Loss: EBL {In ML}: 2 Blood Products Given: N/A Drains Used: No Drains Post-Op Condition: Fair Date of Surgery/Procedure: 10/18/17 Time of Surgery/Procedure: 14:35
--- NOTE | 2017-10-18 14:49 | VASCULAR ---
PROCEDURE: Date of procedure: 10/18/2017 Procedure: 1. Placement of a left arm PICC with ultrasound and fluoroscopic guidance, CPT 22528 2. PICC tip confirmation with spot radiograph and is in the superior vena cava Medications: 3cc 1 percent lidocaine Total Fluoro time: 10.3 seconds Radiation: 1.47 MGy EBL: 3 cc HISTORY: Infection requiring long-term IV antibiotics TECHNIQUE: Following informed consent and procedure time-out, the patient placed supine on the interventional table and the left arm prepped and draped in the usual sterile fashion. Ultrasound showed a patent and compressible left basilic vein. After the skin was anesthetized with lidocaine, the basilic vein was accessed with micro micropuncture technique using ultrasound guidance. A guidewire was then advanced under fluoroscopic guidance into the superior vena cava. An image documenting ultrasound guidance for vascular access was permanently saved. The length of a single-lumen 4 Turkmen PICC was trimmed to 39 cm and advanced through a peel-away sheath. The PICC was position with tip of PICC confirm a spot radiograph the superior vena cava. The PICC was secured to the patient's skin. The PICC was flushed. A biopatch and sterile dressing was applied. IMPRESSION: Placement of a single-lumen 4 Turkmen PICC left basilic vein trimmed to 39 cm. The tip of the PICC is confirmed with spot radiograph and is in the superior vena cava.
--- NOTE | 2017-10-18 22:41 | CP.PCM.PN ---
Subjective - Date & Time of Evaluation Date of Evaluation: 10/18/17 Time of Evaluation: 14:25 - Subjective Subjective: Feels okay. Moving fingers on right hand. Has full sensation Denies cp, sob, fever or chills Objective - Vital Signs/Intake and Output Vital Signs (last 24 hours): Temp Pulse Resp BP Pulse Ox 98.2 F 90 20 110/72 95 10/18/17 15:36 10/18/17 15:36 10/18/17 15:36 10/18/17 14:05 10/18/17 15:36 - Medications Medications: Current Medications Docusate Sodium (Colace) 100 mg PO BID [facility] Last Admin: 10/18/17 16:10 Dose: 100 mg Enoxaparin Sodium (Lovenox) 40 mg SC DAILY [facility] PRN Reason: Protocol Last Admin: 10/18/17 12:00 Dose: 40 mg Lactated Ringer's (Lactated Ringer's) 1,000 mls @ 100 mls/hr IV .Q10H [facility] Last Admin: 10/17/17 23:15 Dose: Not Given Daptomycin 500 mg/ Sodium (Chloride) 100 mls @ 100 mls/hr IV DAILY [facility] Stop: 10/24/17 09:01 Ibuprofen (Motrin Tab) 600 mg PO Q6 PRN PRN Reason: Pain, moderate (4-7) Last Admin: 10/18/17 16:09 Dose: 600 mg Ondansetron HCl (Zofran Inj) 4 mg IVP Q6 PRN PRN Reason: Nausea/Vomiting Last Admin: 10/18/17 18:45 Dose: 4 mg Oxycodone/Acetaminophen (Percocet 5/325 Mg Tab) 2 tab PO Q4 PRN PRN Reason: Pain, moderate (4-7) Stop: 10/19/17 16:54 Last Admin: 10/18/17 18:44 Dose: 2 tab - Labs Labs: 10/18/17 04:45 10/18/17 04:45 - Constitutional Appears: Well, No Acute Distress - Head Exam Head Exam: ATRAUMATIC - Respiratory Exam Respiratory Exam: Clear to Ausculation Bilateral, NORMAL BREATHING PATTERN - Cardiovascular Exam Cardiovascular Exam: REGULAR RHYTHM, +S1, +S2 - GI/Abdominal Exam GI & Abdominal Exam: Normal Bowel Sounds - Extremities Exam Extremities Exam: Joint Swelling (right elbow, dressing intact) - Neurological Exam Neurological Exam: Alert, Oriented x3 - Psychiatric Exam Psychiatric exam: Normal Affect, Normal Mood - Skin Skin Exam: Normal Color, Warm Assessment and Plan (1) Wound infection complicating hardware Status: Acute - Assessment and Plan (Free Text) Assessment: 27 year old with right elbow wound infection, s/p washout and removal of infected hardware Plan: Antibiotics per ID On Daptomycin Picc will require terminal supervisor IV abx dvt prophylaxis
--- NOTE | 2017-10-19 07:16 | OP ---
PROCEDURE DATE: 10/16/2017 PREOPERATIVE DIAGNOSES: 1. Right elbow infected hardware. 2. Right elbow open wound, draining sinus tract. POSTOPERATIVE DIAGNOSES: 1. Right elbow infected hardware. 2. Right elbow open wound, draining sinus tract PROCEDURES: 1. Right elbow open wound debridement of the muscle, skin and ulnar bone, excision of sinus tract, 20622. 2. Right elbow removal of deep implant, proximal ulnar plate, 32814. 3. Right elbow arthrotomy 4. Irrigation and debridement of right elbow joint. SURGEON: Radhames Gómez MD TYPE OF ANESTHESIA: General. DRAINS: One ERNESTO drain. ESTIMATED BLOOD LOSS: Minimal. SPECIMENS: Series of three cultures superficial and deep were sent. DISPOSITION: Stable to recovery room. INDICATION: This is a right-handed dominant male who sustained a elbow fracture and dislocation in the past who underwent ORIF. The patient subsequently developed Staph aureus infection. He underwent one prior washout in the past with removal of radial head plate implant. The patient subsequently continues to have draining wound. He was seen in the emergency room and taken to the operating room for the above procedure. Risks and benefits of the procedure was explained. Risk include, but not limited to bleeding, infection, tendon, nerve, vessel injury, instability, chronic pain, and potential need for additional surgery in the future. The patient understood the above risks and elected to proceed. DESCRIPTION OF PROCEDURE: The patient was brought to the operating room and placed supine on the operating room table after adequate anesthesia was given. A nonsterile well-padded tourniquet was placed on the right upper extremity. The right upper extremity was then prepped and draped in standard surgical fashion. A time-out was performed. An incision was outlined over the old incision scar underlying outside of the elbow. The arm was elevated, exsanguinated, and tourniquet was inflated to 250 mmHg. Incision was made through the skin only, and the sinus tract was elipsed out. all superficial veins were cauterized. The draining sinus tract was excised whole, it was deep and going into the elbow joint. Flaps were elevated. Dissection was carried down. Superficial wound cultures were taken. Arthrotomy was performed and deep cultures were taken. There was no active pus or drainage at this time. Proximal ulna was then dissected and the proximal ulna plate was identified. Under direct visualization, the ulna plate was removed with screwdriver. All hardware was removed. The bone was then debrided with rongeur and nonviable tissue was also debrided with rongeur and curettes. Next, bacitracin mixed solution was used to irrigate the wound, total of 3 L was used to irrigate the superficial and deep layers of the wound. After irrigation, hemostasis was obtained again. Then, a vancomycin powder was placed over the wound and deep and superficial layer. The wound was then closed with 0 Vicryl followed by 2-0 Vicryl followed by yonatan to the skin. Prior to closure of the wound, a ERNESTO drain was placed into the infection site. Sterile dressing was applied consisting of Xeroform, 4 x 4s, Webril, and Vinny. The patient tolerated the procedure well and was returned to the recovery room in excellent condition. Radhames Gómez MD [facility]
[2017-10-19] MEDS: DAPTOmycin 500 MG in Sodium Chloride 0.9% 100 ML IV SCH (08:29)
[2017-10-19] MEDS: Enoxaparin 40 mg Syringe SC SCH (08:30)
[2017-10-19] MEDS: Oxycodone/Acetaminophen 5/325 mg Tab PO PRN ×2 (09:49→16:56)
--- NOTE | 2017-10-19 13:02 | CP.PCM.PN ---
Subjective - Date & Time of Evaluation Date of Evaluation: 10/19/17 Time of Evaluation: 08:00 - Subjective Subjective: less drainage s/p removal hardware cultures same on IV rx for 6 weeks Objective - Vital Signs/Intake and Output Vital Signs (last 24 hours): Temp Pulse Resp BP Pulse Ox 97.8 F 78 18 125/77 97 10/19/17 07:36 10/19/17 07:36 10/19/17 07:36 10/19/17 07:36 10/19/17 07:36 Intake and Output: 10/19/17 10/19/17 06:59 18:59 Output Total 10 Balance -10 - Medications Medications: Current Medications Docusate Sodium (Colace) 100 mg PO BID [facility] Last Admin: 10/19/17 08:30 Dose: 100 mg Enoxaparin Sodium (Lovenox) 40 mg SC DAILY [facility] PRN Reason: Protocol Last Admin: 10/19/17 08:30 Dose: 40 mg Lactated Ringer's (Lactated Ringer's) 1,000 mls @ 100 mls/hr IV .Q10H [facility] Last Admin: 10/17/17 23:15 Dose: Not Given Daptomycin 500 mg/ Sodium (Chloride) 100 mls @ 100 mls/hr IV DAILY [facility] Stop: 10/24/17 09:01 Last Admin: 10/19/17 08:29 Dose: 100 mls/hr Ibuprofen (Motrin Tab) 600 mg PO Q6 PRN PRN Reason: Pain, moderate (4-7) Last Admin: 10/18/17 16:09 Dose: 600 mg Ondansetron HCl (Zofran Inj) 4 mg IVP Q6 PRN PRN Reason: Nausea/Vomiting Last Admin: 10/18/17 18:45 Dose: 4 mg Oxycodone/Acetaminophen (Percocet 5/325 Mg Tab) 2 tab PO Q4 PRN PRN Reason: Pain, moderate (4-7) Stop: 10/19/17 16:54 Last Admin: 10/19/17 09:49 Dose: 2 tab - Labs Labs: 10/18/17 04:45 10/18/17 04:45 - Constitutional Appears: Non-toxic, Chronically Ill - Head Exam Head Exam: NORMOCEPHALIC - ENT Exam ENT Exam: Mucous Membranes Dry, Normal External Ear Exam - Neck Exam Neck Exam: absent: Lymphadenopathy - Respiratory Exam Respiratory Exam: Decreased Breath Sounds - Cardiovascular Exam Cardiovascular Exam: REGULAR RHYTHM - GI/Abdominal Exam GI & Abdominal Exam: Distended, Soft - Rectal Exam Rectal Exam: Deferred - Exam Exam: NORMAL INSPECTION - Extremities Exam Extremities Exam: absent: Pedal Edema - Back Exam Back Exam: absent: CVA tenderness (L), CVA tenderness (R) - Neurological Exam Neurological Exam: Alert, Awake, CN II-XII Intact, Oriented x3 Neuro motor strength exam: Left Upper Extremity: 5, Right Upper Extremity: 5, Left Lower Extremity: 5, Right Lower Extremity: 5 - Psychiatric Exam Psychiatric exam: Normal Mood - Skin Skin Exam: Dry Additional comments: right elbow with drain in place Assessment and Plan (1) Septic joint Status: Acute (2) Wound infection complicating hardware Status: Acute (3) Osteomyelitis Status: Acute - Assessment and Plan (Free Text) Assessment: cont iv rx for 6 weeks
--- NOTE | 2017-10-19 23:22 | CP.PCM.PN ---
Subjective - Date & Time of Evaluation Date of Evaluation: 10/19/17 Time of Evaluation: 13:12 - Subjective Subjective: Feels okay. No complaints. wants to go home Objective - Vital Signs/Intake and Output Vital Signs (last 24 hours): Temp Pulse Resp BP Pulse Ox 97.6 F 79 20 143/71 95 10/19/17 15:34 10/19/17 15:34 10/19/17 15:34 10/19/17 15:34 10/19/17 15:34 Intake and Output: 10/19/17 10/20/17 18:59 06:59 Output Total 10 20 Balance -10 -20 - Medications Medications: Current Medications Docusate Sodium (Colace) 100 mg PO BID [facility] Last Admin: 10/19/17 16:52 Dose: 100 mg Enoxaparin Sodium (Lovenox) 40 mg SC DAILY [facility] PRN Reason: Protocol Last Admin: 10/19/17 08:30 Dose: 40 mg Lactated Ringer's (Lactated Ringer's) 1,000 mls @ 100 mls/hr IV .Q10H [facility] Last Admin: 10/17/17 23:15 Dose: Not Given Daptomycin 500 mg/ Sodium (Chloride) 100 mls @ 100 mls/hr IV DAILY [facility] Stop: 10/24/17 09:01 Last Admin: 10/19/17 08:29 Dose: 100 mls/hr Ibuprofen (Motrin Tab) 600 mg PO Q6 PRN PRN Reason: Pain, moderate (4-7) Last Admin: 10/18/17 16:09 Dose: 600 mg Ondansetron HCl (Zofran Inj) 4 mg IVP Q6 PRN PRN Reason: Nausea/Vomiting Last Admin: 10/19/17 13:10 Dose: 4 mg - Labs Labs: 10/18/17 04:45 10/18/17 04:45 - Constitutional Appears: Well, No Acute Distress - Respiratory Exam Respiratory Exam: Clear to Ausculation Bilateral, NORMAL BREATHING PATTERN - Cardiovascular Exam Cardiovascular Exam: REGULAR RHYTHM, +S1, +S2 - GI/Abdominal Exam GI & Abdominal Exam: Soft, Normal Bowel Sounds - Neurological Exam Neurological Exam: Alert, Oriented x3 - Psychiatric Exam Psychiatric exam: Normal Affect - Skin Skin Exam: Normal Color, Warm Assessment and Plan (1) Wound infection complicating hardware Status: Acute - Assessment and Plan (Free Text) Assessment: 27 year old with wound infection s/p wound washout and removal of infected hardware Plan: Continue antibiotics ID consult appreciated Pt will require IV abx x 6 weeks per ID recommendation picc in place d/c planning for home abx infusion
[2017-10-20] MEDS: Lactated Ringer's 1,000 ML IV SCH ×3 (01:34→21:20)
[2017-10-20] MEDS: DAPTOmycin 500 MG in Sodium Chloride 0.9% 100 ML IV SCH (09:32)
[2017-10-20] MEDS: Enoxaparin 40 mg Syringe SC SCH (09:33)
[2017-10-20] MEDS ORDERED: Oxycodone/Acetaminophen 5/325 mg Tab PO PRN (14:17)
[2017-10-20] MEDS: Oxycodone/Acetaminophen 5/325 mg Tab PO PRN (14:43)
--- NOTE | 2017-10-21 00:37 | CP.PCM.PN ---
Subjective - Date & Time of Evaluation Date of Evaluation: 10/20/17 Time of Evaluation: 17:40 - Subjective Subjective: Feels okay, offers no complains. No fever or chills Objective - Vital Signs/Intake and Output Vital Signs (last 24 hours): Temp Pulse Resp BP Pulse Ox 97.8 F 93 H 20 107/64 95 10/20/17 23:47 10/20/17 23:47 10/20/17 23:47 10/20/17 23:47 10/20/17 23:47 - Medications Medications: Current Medications Docusate Sodium (Colace) 100 mg PO BID [facility] Last Admin: 10/20/17 16:38 Dose: 100 mg Enoxaparin Sodium (Lovenox) 40 mg SC DAILY [facility] PRN Reason: Protocol Last Admin: 10/20/17 09:33 Dose: 40 mg Lactated Ringer's (Lactated Ringer's) 1,000 mls @ 100 mls/hr IV .Q10H [facility] Last Admin: 10/20/17 21:20 Dose: Not Given Daptomycin 500 mg/ Sodium (Chloride) 100 mls @ 100 mls/hr IV DAILY [facility] Stop: 10/24/17 09:01 Last Admin: 10/20/17 09:32 Dose: 100 mls/hr Ibuprofen (Motrin Tab) 600 mg PO Q6 PRN PRN Reason: Pain, moderate (4-7) Last Admin: 10/20/17 12:12 Dose: 600 mg Ondansetron HCl (Zofran Inj) 4 mg IVP Q6 PRN PRN Reason: Nausea/Vomiting Last Admin: 10/20/17 16:37 Dose: 4 mg Oxycodone/Acetaminophen (Percocet 5/325 Mg Tab) 2 tab PO Q4 PRN PRN Reason: Pain, severe (8-10) Stop: 10/23/17 14:40 Last Admin: 10/20/17 14:43 Dose: 2 tab - Labs Labs: 10/18/17 04:45 10/18/17 04:45 - Constitutional Appears: Well, No Acute Distress - Respiratory Exam Respiratory Exam: Clear to Ausculation Bilateral, NORMAL BREATHING PATTERN - Cardiovascular Exam Cardiovascular Exam: REGULAR RHYTHM, +S1, +S2 - GI/Abdominal Exam GI & Abdominal Exam: Soft - Neurological Exam Neurological Exam: Alert, Normal Gait - Psychiatric Exam Psychiatric exam: Normal Affect, Normal Mood - Skin Skin Exam: Normal Color, Warm Assessment and Plan (1) Wound infection complicating hardware Status: Acute - Assessment and Plan (Free Text) Assessment: 27 year old with wound infection s/p removal of infected hardware Plan: Continue same antibiotics ID consult appreciated dvt prophylaxis d/c planning
[2017-10-21] MEDS: Enoxaparin 40 mg Syringe SC SCH (09:32)
[2017-10-21] MEDS: DAPTOmycin 500 MG in Sodium Chloride 0.9% 100 ML IV SCH (10:34)
[2017-10-21] MEDS: Oxycodone/Acetaminophen 5/325 mg Tab PO PRN ×2 (11:15→22:06)
--- NOTE | 2017-10-21 13:06 | CP.PCM.PN ---
Subjective - Date & Time of Evaluation Date of Evaluation: 10/21/17 Time of Evaluation: 10:00 - Subjective Subjective: NO FEVER NOTED LESS DRAINAGE POSSIBLE D/C ON IV RX Objective - Vital Signs/Intake and Output Vital Signs (last 24 hours): Temp Pulse Resp BP Pulse Ox 98.2 F 83 18 111/72 98 10/21/17 07:40 10/21/17 07:40 10/21/17 07:40 10/21/17 07:40 10/21/17 07:40 - Medications Medications: Current Medications Docusate Sodium (Colace) 100 mg PO BID [facility] Last Admin: 10/21/17 09:32 Dose: 100 mg Lactated Ringer's (Lactated Ringer's) 1,000 mls @ 100 mls/hr IV .Q10H [facility] Last Admin: 10/20/17 21:20 Dose: Not Given Daptomycin 500 mg/ Sodium (Chloride) 100 mls @ 100 mls/hr IV DAILY [facility] Stop: 10/24/17 09:01 Last Admin: 10/21/17 10:34 Dose: 100 mls/hr Ibuprofen (Motrin Tab) 600 mg PO Q6 PRN PRN Reason: Pain, moderate (4-7) Last Admin: 10/20/17 12:12 Dose: 600 mg Ondansetron HCl (Zofran Inj) 4 mg IVP Q6 PRN PRN Reason: Nausea/Vomiting Last Admin: 10/20/17 16:37 Dose: 4 mg Oxycodone/Acetaminophen (Percocet 5/325 Mg Tab) 2 tab PO Q4 PRN PRN Reason: Pain, severe (8-10) Stop: 10/23/17 14:40 Last Admin: 10/21/17 11:15 Dose: 2 tab - Labs Labs: 10/18/17 04:45 10/18/17 04:45 - Constitutional Appears: Non-toxic, Chronically Ill - Head Exam Head Exam: NORMOCEPHALIC - Eye Exam Eye Exam: PERRL - ENT Exam ENT Exam: Mucous Membranes Dry - Neck Exam Neck Exam: absent: Lymphadenopathy - Respiratory Exam Respiratory Exam: Decreased Breath Sounds - Cardiovascular Exam Cardiovascular Exam: REGULAR RHYTHM - GI/Abdominal Exam GI & Abdominal Exam: Distended, Soft - Rectal Exam Rectal Exam: Deferred - Exam Exam: NORMAL INSPECTION - Extremities Exam Extremities Exam: absent: Pedal Edema - Back Exam Back Exam: absent: CVA tenderness (L), CVA tenderness (R) - Neurological Exam Neurological Exam: Alert, Awake, Oriented x3 - Psychiatric Exam Psychiatric exam: Depressed - Skin Skin Exam: Dry Additional comments: WOUND DRY Assessment and Plan (1) Septic joint Status: Acute (2) Wound infection complicating hardware Status: Acute (3) Osteomyelitis Status: Acute - Assessment and Plan (Free Text) Assessment: CONT IV RX OUT PT
--- NOTE | 2017-10-21 19:53 | CP.PCM.PN ---
Subjective - Date & Time of Evaluation Date of Evaluation: 10/21/17 Time of Evaluation: 11:25 - Subjective Subjective: In bed, feels okay. Offers no complains Denies fever or chills Objective - Vital Signs/Intake and Output Vital Signs (last 24 hours): Temp Pulse Resp BP Pulse Ox 98.2 F 89 18 119/79 96 10/21/17 15:23 10/21/17 15:23 10/21/17 15:23 10/21/17 15:23 10/21/17 15:23 - Medications Medications: Current Medications Docusate Sodium (Colace) 100 mg PO BID [facility] Last Admin: 10/21/17 18:11 Dose: 100 mg Lactated Ringer's (Lactated Ringer's) 1,000 mls @ 100 mls/hr IV .Q10H [facility] Last Admin: 10/20/17 21:20 Dose: Not Given Daptomycin 500 mg/ Sodium (Chloride) 100 mls @ 100 mls/hr IV DAILY [facility] Stop: 10/24/17 09:01 Last Admin: 10/21/17 10:34 Dose: 100 mls/hr Ibuprofen (Motrin Tab) 600 mg PO Q6 PRN PRN Reason: Pain, moderate (4-7) Last Admin: 10/20/17 12:12 Dose: 600 mg Ondansetron HCl (Zofran Inj) 4 mg IVP Q6 PRN PRN Reason: Nausea/Vomiting Last Admin: 10/20/17 16:37 Dose: 4 mg Oxycodone/Acetaminophen (Percocet 5/325 Mg Tab) 2 tab PO Q4 PRN PRN Reason: Pain, severe (8-10) Stop: 10/23/17 14:40 Last Admin: 10/21/17 11:15 Dose: 2 tab - Labs Labs: 10/18/17 04:45 10/18/17 04:45 - Constitutional Appears: Well, No Acute Distress - Respiratory Exam Respiratory Exam: Clear to Ausculation Bilateral, NORMAL BREATHING PATTERN - Cardiovascular Exam Cardiovascular Exam: REGULAR RHYTHM, +S1, +S2 - GI/Abdominal Exam GI & Abdominal Exam: Soft, Normal Bowel Sounds - Extremities Exam Extremities Exam: Joint Swelling (right elbow, dressing intact) - Neurological Exam Neurological Exam: Alert, Normal Gait - Psychiatric Exam Psychiatric exam: Normal Affect - Skin Skin Exam: Normal Color, Warm Assessment and Plan (1) Wound infection complicating hardware Status: Acute - Assessment and Plan (Free Text) Assessment: 27 year old with wound infection s/p removal of infected hardware Plan: Continue same antibiotics ID consult appreciated dvt prophylaxis d/c planning
[2017-10-21 23:25] VITALS: RESP 20
[2017-10-22] MEDS: DAPTOmycin 500 MG in Sodium Chloride 0.9% 100 ML IV SCH ×2 (09:54→11:00)
[2017-10-22] MEDS: Lactated Ringer's 1,000 ML IV SCH (13:52)
--- NOTE | 2017-10-22 20:24 | CP.PCM.PN ---
Subjective - Date & Time of Evaluation Date of Evaluation: 10/22/17 Time of Evaluation: 11:00 - Subjective Subjective: Feels okay, asking when he is going home. No fever or chills Objective - Vital Signs/Intake and Output Vital Signs (last 24 hours): Temp Pulse Resp BP Pulse Ox 97.9 F 93 H 20 136/87 94 L 10/22/17 15:50 10/22/17 15:50 10/22/17 15:50 10/22/17 15:50 10/22/17 15:50 - Medications Medications: Current Medications Docusate Sodium (Colace) 100 mg PO BID [facility] Last Admin: 10/22/17 18:53 Dose: 100 mg Lactated Ringer's (Lactated Ringer's) 1,000 mls @ 100 mls/hr IV .Q10H [facility] Last Admin: 10/22/17 13:52 Dose: Not Given Daptomycin 500 mg/ Sodium (Chloride) 100 mls @ 100 mls/hr IV Q24H [facility] PRN Reason: Protocol Stop: 10/27/17 11:01 Last Admin: 10/22/17 11:00 Dose: Not Given Ibuprofen (Motrin Tab) 600 mg PO Q6 PRN PRN Reason: Pain, moderate (4-7) Last Admin: 10/20/17 12:12 Dose: 600 mg Ondansetron HCl (Zofran Inj) 4 mg IVP Q6 PRN PRN Reason: Nausea/Vomiting Last Admin: 10/20/17 16:37 Dose: 4 mg Oxycodone/Acetaminophen (Percocet 5/325 Mg Tab) 2 tab PO Q4 PRN PRN Reason: Pain, severe (8-10) Stop: 10/23/17 14:40 Last Admin: 10/21/17 22:06 Dose: 2 tab - Labs Labs: 10/18/17 04:45 10/18/17 04:45 - Constitutional Appears: Well, No Acute Distress - Head Exam Head Exam: ATRAUMATIC - Respiratory Exam Respiratory Exam: Clear to Ausculation Bilateral, NORMAL BREATHING PATTERN - Cardiovascular Exam Cardiovascular Exam: REGULAR RHYTHM, +S1, +S2 - GI/Abdominal Exam GI & Abdominal Exam: Soft, Normal Bowel Sounds - Neurological Exam Neurological Exam: Alert, Oriented x3 - Psychiatric Exam Psychiatric exam: Normal Affect, Normal Mood - Skin Skin Exam: Normal Color, Warm Assessment and Plan (1) Wound infection complicating hardware Status: Acute - Assessment and Plan (Free Text) Assessment: 27 year old with wound infection s/p removal of infected hardware Plan: Continue same antibiotics ID consult appreciated Need 6 weeks IV Rx Pending insurance - WC approval for home IVs dvt prophylaxis d/c planning
[2017-10-22] MEDS: Oxycodone/Acetaminophen 5/325 mg Tab PO PRN (22:10)
[2017-10-23] MEDS: DAPTOmycin 500 MG in Sodium Chloride 0.9% 100 ML IV SCH (10:24)
[2017-10-23] MEDS: Lactated Ringer's 1,000 ML IV SCH ×2 (20:15)
--- NOTE | 2017-10-23 23:30 | CP.PCM.PN ---
Subjective - Date & Time of Evaluation Date of Evaluation: 10/23/17 Time of Evaluation: 15:30 - Subjective Subjective: Feels good. Wants to go home Denies fever or chills Objective - Vital Signs/Intake and Output Vital Signs (last 24 hours): Temp Pulse Resp BP Pulse Ox 97.6 F 84 20 144/73 96 10/23/17 15:40 10/23/17 15:40 10/23/17 15:40 10/23/17 15:40 10/23/17 15:40 - Medications Medications: Current Medications Docusate Sodium (Colace) 100 mg PO BID [facility] Last Admin: 10/23/17 16:47 Dose: 100 mg Lactated Ringer's (Lactated Ringer's) 1,000 mls @ 100 mls/hr IV .Q10H [facility] Last Admin: 10/23/17 00:00 Dose: Not Given Daptomycin 500 mg/ Sodium (Chloride) 100 mls @ 100 mls/hr IV Q24H [facility] PRN Reason: Protocol Stop: 10/27/17 11:01 Last Admin: 10/23/17 10:24 Dose: 100 mls/hr Ibuprofen (Motrin Tab) 600 mg PO Q6 PRN PRN Reason: Pain, moderate (4-7) Last Admin: 10/23/17 22:52 Dose: 600 mg Ondansetron HCl (Zofran Inj) 4 mg IVP Q6 PRN PRN Reason: Nausea/Vomiting Last Admin: 10/20/17 16:37 Dose: 4 mg - Labs Labs: 10/18/17 04:45 10/18/17 04:45 - Constitutional Appears: Well, No Acute Distress - Respiratory Exam Respiratory Exam: Clear to Ausculation Bilateral, NORMAL BREATHING PATTERN - Cardiovascular Exam Cardiovascular Exam: REGULAR RHYTHM, +S1, +S2 - GI/Abdominal Exam GI & Abdominal Exam: Soft, Normal Bowel Sounds - Neurological Exam Neurological Exam: Alert, Normal Gait, Oriented x3 - Psychiatric Exam Psychiatric exam: Normal Affect, Normal Mood - Skin Skin Exam: Normal Color, Warm Assessment and Plan (1) Wound infection complicating hardware Status: Acute - Assessment and Plan (Free Text) Assessment: 27 year old with wound infection s/p removal of infected hardware Plan: Continue same antibiotics - Daptomycin ID consult appreciated Need 6 weeks IV Rx Pending approval for home IV infusion dvt prophylaxis d/c planning
[2017-10-24] MEDS: Lactated Ringer's 1,000 ML IV SCH (04:35)
[2017-10-24 06:53] LABS: BASO # 0.1 K/uL (0.0-0.2); BASO % 0.8 % (0.0-2.0); EOS # 0.8 K/uL (0.0-0.7); EOS % 7.7 % (0.0-4.0); HEMOGLOBIN 14.3 g/dL (12.0-18.0); LYMPH # 4.4 K/uL (1.0-4.3); LYMPH % 41.5 % (20.0-40.0); MEAN CELL VOLUME 84.1 fl (80.0-94.0); MEAN CORPUSCULAR HEMOGLOBIN 28.8 pg (27.0-31.0); MEAN CORPUSCULAR HGB CONC 34.2 g/dL (33.0-37.0); MEAN PLATELET VOLUME 8.9 fl (7.2-11.7); MONO % 9.3 % (0.0-10.0); NEUT # 4.3 K/uL (1.8-7.0); NEUT % 40.7 % (50.0-75.0); NRBC % 0.2 % (0.0-0.0); RBC 4.98 Mil/uL (4.40-5.90); RED CELL DISTRIBUTION WIDTH 13.4 % (11.5-14.5); WHITE BLOOD COUNT 10.6 K/uL (4.8-10.8)
[2017-10-24 07:01] LABS: ALBUMIN 3.9 g/dL (3.5-5.0); ALT/SGPT 77 U/L (21-72); AST/SGOT 62 U/L (17-59); BLOOD UREA NITROGEN 14 mg/dl (9-20); CALCIUM 9.5 mg/dL (8.4-10.2); GFR AFRICAN-AMERICAN > 60; GFR NON-AFRICAN AMERICAN > 60
[2017-10-24] MEDS: DAPTOmycin 500 MG in Sodium Chloride 0.9% 100 ML IV SCH (11:25)
--- NOTE | 2017-10-24 13:05 | CP.PCM.PN ---
Subjective - Date & Time of Evaluation Date of Evaluation: 10/24/17 Time of Evaluation: 10:00 - Subjective Subjective: patient feels ok denies fever or pain has full extension of elbow wound is dry Objective - Vital Signs/Intake and Output Vital Signs (last 24 hours): Temp Pulse Resp BP Pulse Ox 97.7 F 80 20 109/70 99 10/24/17 07:45 10/24/17 07:45 10/24/17 07:45 10/24/17 07:45 10/24/17 07:45 - Medications Medications: Current Medications Docusate Sodium (Colace) 100 mg PO BID [facility] Last Admin: 10/24/17 08:48 Dose: 100 mg Lactated Ringer's (Lactated Ringer's) 1,000 mls @ 100 mls/hr IV .Q10H [facility] Last Admin: 10/24/17 04:35 Dose: Not Given Daptomycin 500 mg/ Sodium (Chloride) 100 mls @ 100 mls/hr IV Q24H [facility] PRN Reason: Protocol Stop: 10/27/17 11:01 Last Admin: 10/24/17 11:25 Dose: 100 mls/hr Ibuprofen (Motrin Tab) 600 mg PO Q6 PRN PRN Reason: Pain, moderate (4-7) Last Admin: 10/23/17 22:52 Dose: 600 mg Ondansetron HCl (Zofran Inj) 4 mg IVP Q6 PRN PRN Reason: Nausea/Vomiting Last Admin: 10/20/17 16:37 Dose: 4 mg - Labs Labs: 10/24/17 05:20 10/24/17 05:20 - Constitutional Appears: Non-toxic, Chronically Ill - Head Exam Head Exam: NORMOCEPHALIC - Eye Exam Eye Exam: PERRL Pupil Exam: NORMAL ACCOMODATION - ENT Exam ENT Exam: Mucous Membranes Dry - Neck Exam Neck Exam: absent: Lymphadenopathy - Respiratory Exam Respiratory Exam: Decreased Breath Sounds - Cardiovascular Exam Cardiovascular Exam: REGULAR RHYTHM - GI/Abdominal Exam GI & Abdominal Exam: Distended, Soft. absent: Tenderness - Rectal Exam Rectal Exam: Deferred - Exam Exam: NORMAL INSPECTION - Extremities Exam Extremities Exam: absent: Pedal Edema - Back Exam Back Exam: absent: CVA tenderness (L), CVA tenderness (R) - Neurological Exam Neurological Exam: Alert, Awake, CN II-XII Intact, Oriented x3 Neuro motor strength exam: Left Upper Extremity: 5, Right Upper Extremity: 5, Left Lower Extremity: 5, Right Lower Extremity: 5 - Psychiatric Exam Psychiatric exam: Normal Mood - Skin Skin Exam: Dry Assessment and Plan (1) Septic joint Status: Acute (2) Wound infection complicating hardware Status: Acute (3) Osteomyelitis Status: Acute - Assessment and Plan (Free Text) Assessment: cont iv rx for OM for 6- 8 weeks serial ESR CRP CBC CMP
--- NOTE | 2017-10-24 13:28 | CP.PCM.PN ---
Subjective - Date & Time of Evaluation Date of Evaluation: 10/24/17 Time of Evaluation: 13:10 - Subjective Subjective: Feels good, ambulating on unit No fever or chills Objective - Vital Signs/Intake and Output Vital Signs (last 24 hours): Temp Pulse Resp BP Pulse Ox 97.7 F 80 20 109/70 99 10/24/17 07:45 10/24/17 07:45 10/24/17 07:45 10/24/17 07:45 10/24/17 07:45 - Medications Medications: Current Medications Docusate Sodium (Colace) 100 mg PO BID [facility] Last Admin: 10/24/17 08:48 Dose: 100 mg Lactated Ringer's (Lactated Ringer's) 1,000 mls @ 100 mls/hr IV .Q10H [facility] Last Admin: 10/24/17 04:35 Dose: Not Given Daptomycin 500 mg/ Sodium (Chloride) 100 mls @ 100 mls/hr IV Q24H [facility] PRN Reason: Protocol Stop: 10/27/17 11:01 Last Admin: 10/24/17 11:25 Dose: 100 mls/hr Ibuprofen (Motrin Tab) 600 mg PO Q6 PRN PRN Reason: Pain, moderate (4-7) Last Admin: 10/23/17 22:52 Dose: 600 mg Ondansetron HCl (Zofran Inj) 4 mg IVP Q6 PRN PRN Reason: Nausea/Vomiting Last Admin: 10/20/17 16:37 Dose: 4 mg - Labs Labs: 10/24/17 05:20 10/24/17 05:20 - Constitutional Appears: Well, No Acute Distress - Head Exam Head Exam: ATRAUMATIC - Respiratory Exam Respiratory Exam: Clear to Ausculation Bilateral, NORMAL BREATHING PATTERN - Cardiovascular Exam Cardiovascular Exam: REGULAR RHYTHM, +S1, +S2 - GI/Abdominal Exam GI & Abdominal Exam: Soft, Normal Bowel Sounds - Extremities Exam Extremities Exam: Full ROM (dressing right elbow intact) - Neurological Exam Neurological Exam: Alert, Oriented x3 - Psychiatric Exam Psychiatric exam: Normal Affect, Normal Mood - Skin Skin Exam: Normal Color, Warm Assessment and Plan (1) Wound infection complicating hardware Status: Acute - Assessment and Plan (Free Text) Assessment: 27 year old with R elbow wound infection s/p removal of infected hardware Plan: Continue Daptomycin ID on board Will need IV abx x 6 weeks D/c planning - awaiting approval for home IVs from
[2017-10-24] MEDS ORDERED: Oxycodone/Acetaminophen 5/325 mg Tab PO PRN (21:49)
[2017-10-25 07:57] VITALS: O2SAT 97
[2017-10-25] MEDS: Lactated Ringer's 1,000 ML IV SCH ×2 (12:20→22:00)
[2017-10-25] MEDS: DAPTOmycin 500 MG in Sodium Chloride 0.9% 100 ML IV SCH (14:53)
--- NOTE | 2017-10-25 18:01 | CP.PCM.PN ---
Subjective - Date & Time of Evaluation Date of Evaluation: 10/25/17 Time of Evaluation: 07:00 - Subjective Subjective: tolerating IV rx Objective - Vital Signs/Intake and Output Vital Signs (last 24 hours): Temp Pulse Resp BP Pulse Ox 98.5 F 78 20 130/84 97 10/25/17 16:24 10/25/17 16:24 10/25/17 16:24 10/25/17 16:24 10/25/17 16:24 - Medications Medications: Current Medications Docusate Sodium (Colace) 100 mg PO BID [facility] Last Admin: 10/25/17 16:46 Dose: 100 mg Lactated Ringer's (Lactated Ringer's) 1,000 mls @ 100 mls/hr IV .Q10H [facility] Last Admin: 10/25/17 12:20 Dose: Not Given Daptomycin 500 mg/ Sodium (Chloride) 100 mls @ 100 mls/hr IV Q24H [facility] PRN Reason: Protocol Stop: 10/27/17 11:01 Last Admin: 10/25/17 14:53 Dose: 100 mls/hr Ibuprofen (Motrin Tab) 600 mg PO Q6 PRN PRN Reason: Pain, moderate (4-7) Last Admin: 10/25/17 15:10 Dose: 600 mg Ondansetron HCl (Zofran Inj) 4 mg IVP Q6 PRN PRN Reason: Nausea/Vomiting Last Admin: 10/25/17 00:05 Dose: 4 mg Oxycodone/Acetaminophen (Percocet 5/325 Mg Tab) 2 tab PO Q4 PRN PRN Reason: Pain, severe (8-10) Stop: 10/27/17 21:50 Last Admin: 10/24/17 22:23 Dose: 2 tab - Labs Labs: 10/24/17 05:20 10/24/17 05:20 - Constitutional Appears: Non-toxic, Chronically Ill - Head Exam Head Exam: NORMOCEPHALIC - Eye Exam Eye Exam: PERRL - ENT Exam ENT Exam: Mucous Membranes Dry - Neck Exam Neck Exam: absent: Lymphadenopathy - Respiratory Exam Respiratory Exam: Decreased Breath Sounds - Cardiovascular Exam Cardiovascular Exam: REGULAR RHYTHM - GI/Abdominal Exam GI & Abdominal Exam: Distended, Soft - Rectal Exam Rectal Exam: Deferred - Exam Exam: NORMAL INSPECTION - Extremities Exam Extremities Exam: absent: Pedal Edema Additional comments: less swelling RUE - Back Exam Back Exam: absent: CVA tenderness (L), CVA tenderness (R) Assessment and Plan (1) Septic joint Status: Acute (2) Wound infection complicating hardware Status: Acute (3) Osteomyelitis Status: Acute - Assessment and Plan (Free Text) Assessment: cont iv rx as ordered
--- NOTE | 2017-10-25 23:21 | CP.PCM.PN ---
Subjective - Date & Time of Evaluation Date of Evaluation: 10/25/17 Time of Evaluation: 14:45 - Subjective Subjective: No complaints. Wants to go home Objective - Vital Signs/Intake and Output Vital Signs (last 24 hours): Temp Pulse Resp BP Pulse Ox 98.5 F 78 20 130/84 97 10/25/17 16:24 10/25/17 16:24 10/25/17 16:24 10/25/17 16:24 10/25/17 16:24 - Medications Medications: Current Medications Docusate Sodium (Colace) 100 mg PO BID [facility] Last Admin: 10/25/17 16:46 Dose: 100 mg Lactated Ringer's (Lactated Ringer's) 1,000 mls @ 100 mls/hr IV .Q10H [facility] Last Admin: 10/25/17 22:00 Dose: Not Given Daptomycin 500 mg/ Sodium (Chloride) 100 mls @ 100 mls/hr IV Q24H [facility] PRN Reason: Protocol Stop: 10/27/17 11:01 Last Admin: 10/25/17 14:53 Dose: 100 mls/hr Ibuprofen (Motrin Tab) 600 mg PO Q6 PRN PRN Reason: Pain, moderate (4-7) Last Admin: 10/25/17 22:50 Dose: 600 mg Ondansetron HCl (Zofran Inj) 4 mg IVP Q6 PRN PRN Reason: Nausea/Vomiting Last Admin: 10/25/17 00:05 Dose: 4 mg Oxycodone/Acetaminophen (Percocet 5/325 Mg Tab) 2 tab PO Q4 PRN PRN Reason: Pain, severe (8-10) Stop: 10/27/17 21:50 Last Admin: 10/24/17 22:23 Dose: 2 tab - Labs Labs: 10/24/17 05:20 10/24/17 05:20 - Constitutional Appears: Well, No Acute Distress - Head Exam Head Exam: ATRAUMATIC - Respiratory Exam Respiratory Exam: Clear to Ausculation Bilateral, NORMAL BREATHING PATTERN - Cardiovascular Exam Cardiovascular Exam: REGULAR RHYTHM, +S1, +S2 - GI/Abdominal Exam GI & Abdominal Exam: Soft, Normal Bowel Sounds - Neurological Exam Neurological Exam: Alert, Oriented x3 - Psychiatric Exam Psychiatric exam: Normal Affect, Normal Mood - Skin Skin Exam: Normal Color, Warm Assessment and Plan (1) Wound infection complicating hardware Status: Acute - Assessment and Plan (Free Text) Assessment: 27 year old with wound infection s/p removal of infected hardware Plan: Eager to go home Awaiting for approval of home IV antibiotics Picc in place Continue Dapto ID on board
[2017-10-26 07:48] VITALS: BP 118/78; PULSE 86; TEMP 97.7
[2017-10-26] MEDS: Lactated Ringer's 1,000 ML IV SCH (09:21)
[2017-10-26] MEDS: DAPTOmycin 500 MG in Sodium Chloride 0.9% 100 ML IV SCH (12:07)
[2017-10-26] MEDS ORDERED: guaiFENesin DM 200 mg-20 mg/10 ml UD PO PRN (12:31)
--- NOTE | 2017-10-27 23:15 | CP.PCM.DIS ---
Provider - Provider Date of Admission: 10/17/17 11:44 Attending physician: Pee Allen MD Time Spent in preparation of Discharge (in minutes): 35 Diagnosis - Discharge Diagnosis (1) Wound infection complicating hardware Status: Acute Priority: High Hospital Course - Lab Results Lab Results: Micro Results 10/16/17 12:00 Blood Blood Culture - Final NO GROWTH AFTER 5 DAYS 10/16/17 12:00 Blood Gram Stain - Final TEST NOT PERFORMED 10/16/17 13:12 Blood Blood Culture - Final NO GROWTH AFTER 5 DAYS 10/16/17 13:12 Blood Gram Stain - Final TEST NOT PERFORMED 10/16/17 11:28 Elbow - Right Gram Stain - Final 10/16/17 11:28 Elbow - Right Wound Culture - Final No growth. 10/16/17 11:28 Elbow - Right Gram Stain - Final 10/16/17 11:28 Elbow - Right Wound Culture - Final Staphylococcus Aureus 10/16/17 11:28 Elbow - Right Gram Stain - Final 10/16/17 11:28 Elbow - Right Wound Culture - Final Staphylococcus Aureus 10/16/17 12:00 Elbow - Right Gram Stain - Final 10/16/17 12:00 Elbow - Right Wound Culture - Final Staphylococcus Aureus Most Recent Lab Values WBC 10.6 K/uL (4.8-10.8) 10/24/17 05:20 RBC 4.98 Mil/uL (4.40-5.90) 10/24/17 05:20 Hgb 14.3 g/dL (12.0-18.0) 10/24/17 05:20 Hct 41.9 % (35.0-51.0) 10/24/17 05:20 MCV 84.1 fl (80.0-94.0) 10/24/17 05:20 MCH 28.8 pg (27.0-31.0) 10/24/17 05:20 MCHC 34.2 g/dL (33.0-37.0) 10/24/17 05:20 RDW 13.4 % (11.5-14.5) 10/24/17 05:20 Plt Count 297 K/uL (130-400) 10/24/17 05:20 MPV 8.9 fl (7.2-11.7) 10/24/17 05:20 Neut % (Auto) 40.7 % (50.0-75.0) L 10/24/17 05:20 Lymph % (Auto) 41.5 % (20.0-40.0) H 10/24/17 05:20 Lamar % (Auto) 9.3 % (0.0-10.0) 10/24/17 05:20 Eos % (Auto) 7.7 % (0.0-4.0) H 10/24/17 05:20 Baso % (Auto) 0.8 % (0.0-2.0) 10/24/17 05:20 Neut # (Auto) 4.3 K/uL (1.8-7.0) 10/24/17 05:20 Lymph # (Auto) 4.4 K/uL (1.0-4.3) H 10/24/17 05:20 Lamar # (Auto) 1.0 K/uL (0.0-0.8) H 10/24/17 05:20 Eos # (Auto) 0.8 K/uL (0.0-0.7) H 10/24/17 05:20 Baso # (Auto) 0.1 K/uL (0.0-0.2) 10/24/17 05:20 ESR 31 mm/hr (0-15) H 10/19/17 13:23 pO2 28 mm/Hg (30-55) L 10/16/17 12:12 VBG pH 7.38 (7.32-7.43) 10/16/17 12:12 VBG pCO2 50 mmHg (40-60) 10/16/17 12:12 VBG HCO3 26.2 mmol/L 10/16/17 12:12 VBG Total CO2 31.1 mmol/L (22-28) H 10/16/17 12:12 VBG O2 Sat (Calc) 57.1 % (40-65) 10/16/17 12:12 VBG Base Excess 3.3 mmol/L (0.0-2.0) H 10/16/17 12:12 VBG Potassium 4.3 mmol/L (3.6-5.2) 10/16/17 12:12 Sodium 137.0 mmol/L (132-148) 10/16/17 12:12 Chloride 106.0 mmol/L (98-107) 10/16/17 12:12 Glucose 85 mg/dL (75-110) 10/16/17 12:12 Lactate 1.2 mmol/L (0.7-2.1) 10/16/17 12:12 FiO2 21.0 % 10/16/17 12:12 Sodium 144 mmol/l (132-148) 10/24/17 05:20 Potassium 4.3 MMOL/L (3.6-5.0) 10/24/17 05:20 Chloride 100 mmol/L (98-107) 10/24/17 05:20 Carbon Dioxide 29 mmol/L (22-30) 10/24/17 05:20 Anion Gap 19 (10-20) 10/24/17 05:20 BUN 14 mg/dl (9-20) 10/24/17 05:20 Creatinine 0.7 mg/dl (0.8-1.5) L 10/24/17 05:20 Est GFR ( Amer) > 60 10/24/17 05:20 Est GFR (Non-Af Amer) > 60 10/24/17 05:20 Random Glucose 86 mg/dL (75-110) 10/24/17 05:20 Calcium 9.5 mg/dL (8.4-10.2) 10/24/17 05:20 Total Bilirubin 0.5 mg/dl (0.2-1.3) 10/24/17 05:20 AST 62 U/L (17-59) H D 10/24/17 05:20 ALT 77 U/L (21-72) H D 10/24/17 05:20 Alkaline Phosphatase 113 U/L (38-126) 10/24/17 05:20 Total Creatine Kinase 36 U/L (55-170) L 10/24/17 05:20 C-React Prot High Sens 13.57 mg/L (1.00-3.00) H 10/19/17 13:23 Total Protein 7.9 G/DL (6.3-8.2) 10/24/17 05:20 Albumin 3.9 g/dL (3.5-5.0) 10/24/17 05:20 Globulin 4.0 gm/dL (2.2-3.9) H 10/24/17 05:20 Albumin/Globulin Ratio 1.0 (1.0-2.1) 10/24/17 05:20 Venous Blood Potassium 4.3 mmol/L (3.6-5.2) 10/16/17 12:12 Discharge Exam - Head Exam Head Exam: ATRAUMATIC - Eye Exam Eye Exam: EOMI, Normal appearance, PERRL Pupil Exam: NORMAL ACCOMODATION, PERRL - ENT Exam ENT Exam: Mucous Membranes Moist - Neck Exam Neck exam: Full Rom, Normal Inspection - Respiratory Exam Respiratory Exam: Clear to PA & Lateral, NORMAL BREATHING PATTERN - Cardiovascular Exam Cardiovascular Exam: REGULAR RHYTHM, +S1, +S2 - GI/Abdominal Exam GI & Abdominal Exam: Normal Bowel Sounds, Soft - Extremities Exam Additional comments: Right elbow Hardware Removal due to Septic Arthritis and Osteomyelitis. - Neurological Exam Neurological exam: Alert, CN II-XII Intact, Normal Gait, Oriented x3, Reflexes Normal - Psychiatric Exam Psychiatric exam: Normal Affect, Normal Mood - Skin Skin Exam: Dry, Intact, Normal Color, Warm Discharge Plan - Discharge Medications Prescriptions: DAPTOmycin [Cubicin] 500 mg IV DAILY 42 Days #42 vial - Follow Up Plan Condition: FAIR Disposition: HOME/ ROUTINE Instructions: Hardware Removal, Peripherally-Inserted Central Catheter (DC), Wound Infection, Osteomyelitis, Septic Arthritis, Osteomyelitis (DC) Additional Instructions: hacer radha con el Dr. Gómez el ananda harris [address] para cambio de herida. NO TOCAR AHUMADA HERIDA!!!!!! Hacer radha con el Dr. Whittaker 1-2 semanas. infusion de antibioticos de mary alice [facility] infusion [phone] Referrals: Radhames Gómez MD [Medical Doctor] -
== END 2017-10-26 15:00 | disposition home or self-care (01) | DRG 496 ==
LOC: H.ER 11:18 → H.ERHOLD 14:26 → H.MEDSURG1 18:40 → OBSVTOIN 10-17 11:44 → H.MEDSURG1 10-25 19:31
PROVIDERS: ADMIT Internal Medicine; ATTEND Internal Medicine
PROC: 0RBL0ZZ Excision of Right Elbow Joint, Open Approach (ICD-10-PCS; 2017-10-16)
PROC: 3E0T3BZ Introduction of Anesthetic Agent into Peripheral Nerves and Plexi, Percutaneous Approach (ICD-10-PCS; 2017-10-16)
PROC: 0PPK04Z Removal of Internal Fixation Device from Right Ulna, Open Approach (ICD-10-PCS; principal; 2017-10-16 13:45)
PROC: 0PBK0ZZ Excision of Right Ulna, Open Approach (ICD-10-PCS; 2017-10-16 13:45)
PROC: 02HV33Z Insertion of Infusion Device into Superior Vena Cava, Percutaneous Approach (ICD-10-PCS; 2017-10-18)
DX: T84.614A Infection and inflammatory reaction due to internal fixation device of right ulna, initial encounter (principal); M86.9 Osteomyelitis, unspecified; M00.9 Pyogenic arthritis, unspecified; Y79.2 Prosthetic and other implants, materials and accessory orthopedic devices associated with adverse incidents; Y83.8 Other surgical procedures as the cause of abnormal reaction of the patient, or of later complication, without mention of misadventure at the time of the procedure